=== PATIENT | male | born 1940 | race Caucasian/White ===

== ENCOUNTER 2017-08-08 08:54 | Day surgery (SDC) | payer OTHER ==
[2017-08-08] MEDS ORDERED: diphenhydrAMINE 25 MG CAP PO ONE (09:07)
[2017-08-08] MEDS ORDERED: FAMOTIDINE 20 MG TAB PO ONE (09:07)
[2017-08-08] MEDS ORDERED: DIAZEPAM 5 MG TAB PO ONE (09:07)
[2017-08-08] MEDS ORDERED: NS 1,000 ML IV ONE (09:07)
[2017-08-08] MEDS ORDERED: ASPIRIN EC 325 MG TAB PO ONE (09:07)
--- NOTE | 2017-08-08 09:28 | PDPROPOC ---
Sedation Plan of Care Sedation Plan of Care: mental status noted, patient educated of risks, benefits , alternatives, patient can tolerate sedation ASA Classification: ASA 2 Planned drugs: fentanyl, midazolam Mallampati Score: Class 2 Mallampati Reference Image: Patient passed 3-3-2 rule?: Yes
--- NOTE | 2017-08-08 09:29 | PDHPUP ---
History & Physical Update H&P update statement: This history and physical update is based on an assessment of the patient which was completed after admission or registration (within 24 hours), but prior to the surgery/procedure. H&P update: H&P reviewed & patient examined, no change in patient's condition since H&P completed
[2017-08-08] MEDS ORDERED: LIDOCAINE 1% 300 MG/30 ML SDV ONE (09:30)
[2017-08-08] MEDS ORDERED: MIDAZOLAM 2 MG/2 ML VIAL ONE (09:31)
[2017-08-08] MEDS ORDERED: IOPAMIDOL (ISOVUE-370) 150 ML BTL IV ONE (09:31)
[2017-08-08] MEDS ORDERED: fentaNYL 100 MCG/2 ML INJ ONE (09:31)
--- NOTE | 2017-08-08 09:37 | CPEKG ---
Heart Rate: 75 RR Interval: 800 P-R Interval: 143 QRSD Interval: 140 QT Interval: 424 QTC Interval: 474 P [place]: 0 QRS [place]: 41 T Wave [place]: -15 EKG Severity - ABNORMAL ECG - EKG Impression: ATRIAL FIBRILLATION, V-RATE 0-0 EKG Impression: VENTRICULAR PREMATURE COMPLEX EKG Impression: RIGHT BUNDLE BRANCH BLOCK Electronically Signed By: Nathanael Hoyt 08-Aug-2017 17:02:44
--- NOTE | 2017-08-08 09:54 | PDGENHP ---
History & Physical Chief Complaint: CP History of Present Illness: 77 yo male with CP. Very strong family hx of CAD. Could not afford stress test but CP is progressing. Pertinent Past, Social, Family History: Family hx of CAD. +smoking. Relevant Physical Exam: PERRLA. RRR s1 s2. CTA-b. soft, NT. no edema Cardiorespiratory Assessment: stable
[2017-08-08 10:04] LABS: INR 1.27 (0.83-1.16); PROTIME(PATIENT) 16.1 SEC (12.0-15.0)
[2017-08-08 10:11] LABS: PLATELET COUNT 162 10^3/uL (150-400)
[2017-08-08] MEDS ORDERED: OXYCODONE/APAP 5/325 TAB PO PRN (11:38)
[2017-08-08] MEDS ORDERED: NITROGLYCERIN 0.4 MG BTL SL PRN (11:38)
[2017-08-08] MEDS ORDERED: HYDROCODONE/APAP 5/325 TAB PO PRN (11:38)
[2017-08-08] MEDS ORDERED: ONDANSETRON 4 MG/2 ML VIAL IVP PRN (11:38)
[2017-08-08] MEDS ORDERED: ATROPINE SULFATE 1 MG/10 ML SYR IVP PRN (11:38)
--- NOTE | 2017-08-08 15:50 | CPIP ---
[f rep st] INVASIVE CARDIAC PROCEDURE DATE OF PROCEDURE: 08/08/2017 INDICATION FOR PROCEDURE: Positive chest pain. PROCEDURE: 1. Nonselective right groin sheathogram. 2. Bilateral selective coronary angiography. 3. Left heart catheterization. 4. Left ventriculogram. BRIEF HISTORY: This is a 77-year-old male with history of worsening anginal symptoms as an outpatien t. The patient could not afford a stress test but given his significant progression of chest pain as well as very significant family history of coronary artery disease, he decided to proceed with left heart catheterization. DESCRIPTION OF PROCEDURE: After informed consent was obtained, the patient was brought to [facility] where the right groin was prepped and draped in a sterile fashion. Using local lidocaine, a short 6-Jordanian sheath was introduced in the right common femoral artery, verified angiographically. Through this 6 -Jordanian sheath, a JL4 catheter was advanced to the left coronary artery. Images of the left coronary artery revealed normal left main. There was what appeared to be a codominant circumflex with ostial 80% to 90% disease. After the ostial disease, there was a takeoff of a small marginal-1 artery and then termination of the vessel into what appeared to be a large LPLS. There appeared to be collatera lization to what appeared most likely to be an occluded RCA. The LAD was a long vessel which wrapped around the apex. The LAD had what appeared to be diffuse 70% to 80% disease proximally, just at the takeoff of a medium-sized diagonal artery. The diagonal artery had proximal 40% disease, but otherw ise distally was healthy and free of disease. The LAD distally appeared to be healthy and free of di sease. After the images were obtained, the catheter was removed. A JR4 catheter was advanced to the right coronary artery. Images of the right coronary artery reveal ed normal ostial RCA. There was 90% proximal lesion in the RCA and what appeared to be distal occlus ion of the mid RCA, again, which reconstituted via collaterals from the left coronary artery. After images obtained, the JR4 catheter was removed. A pigtail catheter was then advanced into the left ve ntricle. LVEDP 15 mmHg, left ventriculogram was performed in the ERWIN position. EF of 65% with no wa ll motion abnormalities. No pullback between the LV and aorta. Pigtail catheter was removed over th e 0.035 wire. Right groin was closed with 6-Jordanian Angio-Seal. The patient tolerated the procedure well with no complications. IMPRESSION: 1. Triple-vessel coronary artery disease, namely in the form of ostial left circumflex disease, prox imal left anterior descending artery disease and 100% occluded mid right coronary artery disease. 2. Normal ejection fraction. PLAN: The patient will be referred for bypass surgery. I have contacted Dr. Levine, who agrees to se e the patient today. Scheduling of surgery will be up to the timing of Dr. Levine and the patient. /[id number]/MODL
--- NOTE | 2017-08-08 21:41 | GCON ---
[f rep st] CONSULTATION INITIAL CONSULTATION DATE OF CONSULTATION: 08/08/2017 REASON FOR CONSULTATION: Severe multivessel coronary artery disease. HISTORY OF PRESENT ILLNESS: The patient is a 77-year-old male with a medical history of hypertension , hyperlipidemia, chronic renal insufficiency, and chronic atrial fibrillation, who presented to the [facility] secondary to progressive shortness of breath over the last 1-2 months. He notes that mo st of this has been dyspnea on exertion and denies any symptoms at rest. He denies any chest pain. He also denies nausea, vomiting, fevers, chills, or other issues. MEDICAL HISTORY: Hypertension, hyperlipidemia, chronic atrial fibrillation, chronic renal insufficie ncy. SURGICAL HISTORY: Neck surgery many years ago for sprained or torn muscle. ALLERGIES: No known drug allergies. MEDICATIONS: Atorvastatin, lisinopril/hydrochlorothiazide, Coumadin, jane ashford. SOCIAL HISTORY: The patient is single and lives alone. He just recently retired. He was in the [employer] business. He denies any cigarette smoking history. He notes drinking alcohol of about 1- 2 drinks each evening which consists of wine. FAMILY HISTORY: Significant for coronary artery disease in his family including his brothers and sis ters all needing open heart surgery in their 60's. REVIEW OF SYSTEMS: A 12-point review of systems was negative other than noted in the HPI. PHYSICAL EXAMINATION: GENERAL: The patient is awake, alert, and oriented x3. He is in no acute dis tress. SHEENT: Normocephalic, atraumatic. No evidence of icterus. No JVD. No tracheal deviation. LUNGS: Clear to auscultation bilaterally. HEART: Irregularly-irregular with rate in the 70s. AB DOMEN: Soft, nontender, nondistended. EXTREMITIES: Warm and well perfused with mild pitting edema which is about 1+, extending to the knees bilaterally. DIAGNOSTIC STUDIES: Laboratory values: CBC: WBC 5.81, hemoglobin 16.0, hematocrit 45.6, platelet c ount 162. Chemistries: Sodium 147, potassium 4.5, chloride 113, carbon dioxide 21, BUN 27, creatini ne 1.4, glucose 106, calcium 9.7, magnesium 1.9. Coagulation Studies: PT 16.1, INR of 1.27. Cardiac catheterization performed earlier today which I have personally reviewed shows multivessel co ronary artery disease with approximately 70% proximal LAD lesion, as well as a high grade ostial left circumflex lesion, probably on the order of 90% or so. Also, the mid RCA has a significant lesion o f about 80% to 90%. However, this does not appear to be dominant. ASSESSMENT AND PLAN: The patient is a 77-year-old male with multivessel coronary artery disease, as well as chronic atrial fibrillation. Discussion was had with the patient in regard to his various tr eatment options including medical therapy, percutaneous coronary intervention, as well as surgical re vascularization. I do feel that the patient would benefit the most from surgical revascularization a nd he is willing to proceed as recommended. In addition, I would also perform left atrial appendage ligation and potentially a maze procedure, depending on how the patient is doing intraoperatively. T he patient understands and is willing to proceed, and will be scheduled within the coming week. /[id number]/MODL
== END 2017-08-08 16:35 | disposition home or self-care (01) ==
LOC: FCATH 08:54
PROVIDERS: ATTEND Internal Medicine Cardiovascular Disease
PROC: 4A023N7 Measurement of Cardiac Sampling and Pressure, Left Heart, Percutaneous Approach (ICD-10-PCS; principal; 2017-08-08)
PROC: B2151ZZ Fluoroscopy of Left Heart using Low Osmolar Contrast (ICD-10-PCS; principal; 2017-08-08)
PROC: B2111ZZ Fluoroscopy of Multiple Coronary Arteries using Low Osmolar Contrast (ICD-10-PCS; principal; 2017-08-08)
DX: I25.10 Atherosclerotic heart disease of native coronary artery without angina pectoris (principal); I25.82 Chronic total occlusion of coronary artery; R07.9 Chest pain, unspecified; R06.00 Dyspnea, unspecified; I48.2 Chronic atrial fibrillation; N28.9 Disorder of kidney and ureter, unspecified; I10 Essential (primary) hypertension; I45.10 Unspecified right bundle-branch block; E78.5 Hyperlipidemia, unspecified; Z79.01 Long term (current) use of anticoagulants; Z82.49 Family history of ischemic heart disease and other diseases of the circulatory system
CPT/HCPCS: C1760; J1644; J2250; J3010; Q9967

== ENCOUNTER 2017-08-11 05:56 | Inpatient (IN) | payer OTHER ==
[~2017-08-11 05:56] MED LIST: LIDOCAINE 1% 5 ML SDV ID PRN; MANNITOL 25% 12.5 GM/50 ML VIAL IVP ONE
[2017-08-11] MEDS ORDERED: CITRATE DEXTROSE SOLN 500 ML BAG MISC ONE (06:00)
[2017-08-11] MEDS ORDERED: PAPAVERINE HCL 60 MG in NS 100 ML IV ONE (06:00)
[2017-08-11] MEDS ORDERED: ceFAZolin 2 GM/SWFI 2 GM/20 ML SYR IVP ONE (06:00)
[2017-08-11] MEDS ORDERED: SODIUM BICARBONATE 20 MEQ, LIDOCAINE 1% 10 ML in NORMOSOL-R 1,000 ML MISC ONE (06:00)
[2017-08-11] MEDS ORDERED: PHENYLEPHRINE HCL 50 MG in NS 250 ML IV ONE (06:00)
[2017-08-11] MEDS ORDERED: VERAPAMIL 5 MG, NITROGLYCERIN 2.5 MG, HEPARIN 500 UNIT, SODIUM BICARBONATE 0.2 MEQ in L... MISC ONE (06:00)
[2017-08-11] MEDS ORDERED: TRANEXAMIC ACID 1,000 MG in NS (SYRINGE) 50 ML IV ONE (06:00)
[2017-08-11] MEDS ORDERED: INSULIN REGULAR HUMAN 100 UNIT in NS 100 ML IV ONE (06:00)
[2017-08-11] MEDS ORDERED: LIDOCAINE 1% 2 ML INJ ID PRN (06:11)
[2017-08-11] MEDS ORDERED: NS 500 ML IV ONE (06:11)
[2017-08-11] MEDS: MUPIROCIN 2% 22 GM OINT NS SCH ×3 (06:46→20:40)
[2017-08-11] MEDS ORDERED: PROTAMINE SULFATE 50 MG/5 ML VIAL IVP ONE (07:00)
[2017-08-11] MEDS ORDERED: NA BICARBONATE 50 MEQ/50 ML VIAL ONE (07:00)
[2017-08-11] MEDS ORDERED: CALCIUM CHLORIDE 1 GM/10 ML INJ ONE ×3 (07:00→07:02)
[2017-08-11] MEDS ORDERED: MILRINONE/DEXTROSE/100 ML BAG IV ONE (07:00)
[2017-08-11] MEDS ORDERED: AMIODARONE HCL 150 MG/3 ML VIAL ONE ×2 (07:01→07:03)
[2017-08-11] MEDS ORDERED: ceFAZolin 1 GM VIAL ONE ×2 (07:01→15:09)
[2017-08-11] MEDS ORDERED: niCARdipine/NACL/200 ML BAG IV ONE (07:01)
[2017-08-11] MEDS ORDERED: DOPamine/DEXTROSE/250 ML BAG IV ONE (07:01)
[2017-08-11] MEDS ORDERED: HEPARIN 10,000 UNIT/10 ML MDV (1,000 UNIT/ML) ONE ×2 (07:01→07:03)
[2017-08-11] MEDS ORDERED: ADENOSINE 6 MG/2 ML VIAL ONE (07:01)
[2017-08-11] MEDS ORDERED: ALBUMIN 5% 250 ML BOTTLE IV ONE ×2 (07:02→15:28)
[2017-08-11] MEDS ORDERED: methylPREDNISolone SOD SUCC 1 GM/8 ML VIAL ONE (07:03)
[2017-08-11] MEDS ORDERED: CITRATE DEXTROSE SOLN 500 ML BAG ONE (07:03)
[2017-08-11] MEDS ORDERED: MAGNESIUM SULFATE 1 GM/2 ML VIAL ONE (07:03)
[2017-08-11] MEDS ORDERED: LIDOCAINE 2% 100 MG/5 ML SYR ONE (07:03)
[2017-08-11] MEDS ORDERED: VANCOMYCIN 1 GM VIAL ONE ×2 (07:12→09:40)
[2017-08-11] MEDS ORDERED: LABETALOL HCL 5 MG/ML 20 ML MDV ONE (07:17)
[2017-08-11] MEDS ORDERED: ROCURONIUM 100 MG/10 ML VIAL ONE (07:17)
[2017-08-11] MEDS ORDERED: PHENYLEPHRINE 10 MG/ML SDV ONE (07:17)
[2017-08-11] MEDS ORDERED: LIDOCAINE 2% 5 ML SDV ONE (07:28)
[2017-08-11] MEDS ORDERED: SUCCINYLCHOLINE CHLORIDE 200 MG/10 ML SYR IVP ONE (07:28)
[2017-08-11] MEDS ORDERED: PROPOFOL 200 MG/20 ML VIAL ONE (07:29)
[2017-08-11] MEDS ORDERED: fentaNYL 250 MCG/5 ML INJ ONE ×2 (07:29)
[2017-08-11] MEDS ORDERED: NOREPINEPHRINE BITARTRATE 16 MG in NS 250 ML IV ONE (07:30)
--- NOTE | 2017-08-11 07:38 | PDHPUP ---
History & Physical Update H&P update statement: This history and physical update is based on an assessment of the patient which was completed after admission or registration (within 24 hours), but prior to the surgery/procedure. H&P changes: Completing risk stratification. CXR NAF. Cr stable. Carotid US and HgbA1c pending. Verified coumadin has been held last 5 days.
[2017-08-11] MEDS ORDERED: MIDAZOLAM 2 MG/2 ML VIAL IVP ONE (07:40)
--- NOTE | 2017-08-11 07:43 | PDANEPAE ---
ANE History of Present Illness cab ANE Past Medical History - Cardiovascular History Hx Hypertension: Yes Hx Arrhythmias: Yes Hx Chest Pain: No Hx Coronary Artery / Peripheral Vascular Disease: Yes Hx CHF / Valvular Disease: No Hx Palpitations: No - Pulmonary History Hx COPD: No Hx Asthma/Reactive Airway Disease: No Hx Recent Upper Respiratory Infection: No Hx Oxygen in Use at Home: No Hx Sleep Apnea: No Sleep Apnea Screening Result - Last Documented: Positive - Neurologic History Hx Cerebrovascular Accident: No Hx Seizures: No Hx Dementia: No - Endocrine History Hx Diabetes: No Hypothyroid: No Hyperthyroid: No - Renal History Hx Renal Disorders: Yes - Liver History Hx Hepatic Disorders: No - Neurological & Psychiatric Hx Hx Neurological and Psychiatric Disorders: No - Cancer History Hx Cancer: No - Chronic Pain History Chronic Pain: No ANE Review of Systems Review of Systems: - Exercise capacity METS (RN): 3 METS ANE Patient History - Allergies Allergies/Adverse Reactions: No Known Allergies Allergy (Unverified 11/17/10 10:24) - Home Medications Home Medications: Atorvastatin Calcium [Lipitor 40 mg (*)] 40 mg PO DAILY 08/01/17 [Last Taken ] Herbals/Supplements -Info Only 1 ea PO DAILY 08/01/17 [Last Taken 08/08/17 09:57 ] Lisinopril/Hctz 20/12.5MG [Zestoretic/Prinzide 20/12.5MG (*)] 2 ea PO DAILY [Last Taken 08/09/17] Warfarin Sodium [Coumadin 5MG (*)] 5 mg PO DAILY 08/01/17 [Last Taken 08/06/17] - NPO status NPO Status: no food or drink >8 hours NPO Since - Liquids (Date): 08/10/17 NPO Since - Liquids (Time): 19:00 NPO Since - Solids (Date): 08/10/17 NPO Since - Solids (Time): 19:00 - Smoking Hx Smoking Status: Never smoked ANE Labs/Vital Signs - Labs Result Diagrams: 08/11/17 06:33 08/11/17 06:33 - Vital Signs Blood Pressure: 118/77 Heart Rate: 58 Respiratory Rate: 18 O2 Sat (%): 95 Height: 182.88 cm Weight: 92.533 kg ANE Physical Exam - Airway Mallampati Score: Class 2 Mouth exam: normal dental/mouth exam - Pulmonary Pulmonary: no respiratory distress - Cardiovascular Cardiovascular: regular rate and rhythym - ASA Status ASA Status: III ANE Anesthesia Plan Anesthesia Plan: general endotracheal anesthesia Lines/Monitors: arterial line, central line, ALBERT
[2017-08-11] MEDS ORDERED: MIDAZOLAM 2 MG/2 ML VIAL ONE ×2 (08:32→10:49)
[2017-08-11] MEDS ORDERED: MAGNESIUM SULF 2 GM/WATER 50 ML BAG IV ONE (11:15)
[2017-08-11] MEDS ORDERED: ISOFLURANE 100 ML BOTTLE IH ONE (11:42)
[2017-08-11] MEDS ORDERED: ROCURONIUM 50 MG/5 ML VIAL ONE ×2 (13:17→15:14)
[2017-08-11] MEDS ORDERED: SUGAMMADEX SODIUM 200 MG/2 ML VIAL IVP ONE (14:57)
[2017-08-11] MEDS ORDERED: PROPOFOL/EMULSION 500 MG/50 ML BOTTLE IV ONE (15:24)
[2017-08-11] MEDS ORDERED: ALBUMIN 5% 500 ML BOTTLE IV ONE (15:27)
--- NOTE | 2017-08-11 15:30 | POSTOPPROG ---
Post Op Note Date of Operation: 08/11/17 Surgeon: Liliana España [employer] Assistant: Marilia Cotter PA-C Anesthesia: GET(General Endotracheal) Pre-op Diagnosis: 1) Severe Coronary artery disease; 2) Long-standing persistent a-fib Post-op Diagnosis: Same Procedure: CABG x 4 (CHAPIN-LAD, SVG-D1, SVG-PDA, SVG-OM1); TAMIR ligation; Cardoza- Maze IV Findings: CHAPIN adequate in size and flow. LAD 1.75mm, PDA 1mm, OM1 1.25mm, D1 1.5mm Inf/Abcess present in the surg proc area at time of surgery?: No EBL: 100-500 Complications: None Drains: Other (Chest tube x 2 (mediastinal and left pleural)) Specimen(s): None
[2017-08-11] MEDS ORDERED: POTASSIUM Cl (KCl) 50 ML IV PRN (16:01)
[2017-08-11] MEDS ORDERED: AMIODARONE HCL 200 ML IV ONE (16:01)
[2017-08-11] MEDS ORDERED: LACTULOSE 20 GM/30 ML UDCUP PO PRN (16:01)
[2017-08-11] MEDS ORDERED: ACETAMINOPHEN 325 MG TAB PO PRN (16:01)
[2017-08-11] MEDS ORDERED: MEPERIDINE 25 MG/ML SYR IVP PRN (16:01)
[2017-08-11] MEDS ORDERED: SODIUM CL NASAL 45 ML BTL EACHNARE PRN (16:01)
[2017-08-11] MEDS ORDERED: BISACODYL 10 MG SUPP PR PRN (16:01)
[2017-08-11] MEDS ORDERED: ACETAMINOPHEN 650 MG SUPP PR PRN (16:01)
[2017-08-11] MEDS ORDERED: MAGNESIUM SULF 2 GM/WATER 50 ML IV ONE (16:01)
[2017-08-11] MEDS ORDERED: ONDANSETRON DISINTEGRATING 4 MG TAB PO PRN (16:01)
[2017-08-11] MEDS ORDERED: METOCLOPRAMIDE 10 MG/2 ML VIAL IVP PRN (16:01)
[2017-08-11] MEDS ORDERED: D50W 25 GM/50 ML SYR IVP PRN (16:01)
[2017-08-11] MEDS ORDERED: PANTOPRAZOLE SODIUM 40 MG VIAL IVP ONE ×2 (16:01→20:45)
[2017-08-11] MEDS ORDERED: ALBUMIN 5% 250 ML IV PRN (16:01)
[2017-08-11] MEDS ORDERED: CEPACOL LOZENGE PO PRN (16:01)
[2017-08-11] MEDS ORDERED: MAGNESIUM HYDROXIDE 30 ML UDCUP PO PRN (16:01)
[2017-08-11] MEDS ORDERED: NS 1,000 ML IV SCH (16:15)
[2017-08-11 16:19] LABS: PLATELET COUNT 106 10^3/uL (150-400)
--- NOTE | 2017-08-11 16:19 | POSTANESTH ---
Post Anesthetic Evaluation Cardiovascular Status: Normal, Stable Respiratory Status: Other, See Comment (stable on vent) Level of Consciousness/Mental Status: Other, See Comment (sedated on propofol) Pain Control: Adequate, Prn Tx Ordered Nausea/Vomiting Control: Adequate, Prn Tx Ordered Complications Possibly Related to Anesthesia: None Noted
[2017-08-11] MEDS ORDERED: NALOXONE HCL 0.4 MG/ML INJ IVP PRN (16:20)
[2017-08-11] MEDS ORDERED: niCARdipine/NACL 200 ML IV PRN (16:23)
[2017-08-11] MEDS ORDERED: INSULIN REGULAR HUMAN 100 UNIT in NS 100 ML IV SCH (16:30)
[2017-08-11 16:33] LABS: INR 1.56 (0.83-1.16); PROTIME(PATIENT) 18.8 SEC (12.0-15.0)
[2017-08-11] MEDS: fentaNYL 100 MCG/2 ML INJ IVP PRN ×2 (19:00→22:26)
[2017-08-11] MEDS ORDERED: SODIUM BICARBONATE 50 MEQ/50 ML SYR ONE (20:14)
[2017-08-11] MEDS: ONDANSETRON 4 MG/2 ML VIAL IVP PRN (20:44)
[2017-08-11] MEDS ORDERED: CHLORHEXIDINE GLUCONATE 15 ML UDL PO SCH (21:00)
[2017-08-11] MEDS ORDERED: FAMOTIDINE 20 MG/NACL 50 ML IV SCH (21:00)
[2017-08-11] MEDS ORDERED: ceFAZolin 2 GM/DEXTROSE 100 ML IV SCH (21:00)
[2017-08-11] MEDS: ceFAZolin 2 GM/SWFI 2 GM/20 ML SYR IVP SCH (21:15)
[2017-08-11] MEDS: AMIODARONE HCL 200 ML IV SCH (22:20)
--- NOTE | 2017-08-12 00:11 | GOP ---
[f rep st] OPERATIVE REPORT DATE OF OPERATION: 08/11/2017 SURGEON: Liliana España MD [place] TYPIST: Marilia Cotter PA-C ANESTHESIA: General. PREOPERATIVE DIAGNOSIS: 1. Severe multivessel coronary artery disease. 2. Persistent longstanding atrial fibrillation. POSTOPERATIVE DIAGNOSIS: 1. Severe multivessel coronary artery disease. 2. Persistent longstanding atrial fibrillation. PROCEDURE PERFORMED: 1. Median sternotomy. 2. Endoscopic saphenous vein harvesting from the left lower extremity. 3. Epiaortic ultrasound. 4. Total cardiopulmonary bypass. 5. Cardoza-Maze IV procedure utilizing cryoablation. 6. Left atrial appendage ligation utilizing 40 mm AtriClip device. 7. Coronary artery bypass grafting x4 (CHAPIN to LAD, saphenous vein graft to OM1, saphenous vein valentino t to diagonal 1, saphenous vein graft to PDA). 8. Placement of 2 temporary right atrial and right ventricular epicardial pacing wires. FINDINGS: The CHAPIN was noted to be adequate in size, with good flow. The LAD target was 1.75 mm, PD A 1 mm, OM1 1.25 mm, diagonal-1 1.5 mm. SPECIMENS: None. ESTIMATED BLOOD LOSS: 500 mL. INDICATIONS: The patient is a 77-year-old male who has been noticing increasing shortness of breath for the past few months. Based on his symptoms, he underwent cardiac catheterization last week for p ossible coronary artery disease, and he was found to have severe multivessel coronary artery disease, and therefore referred for surgical revascularization. The patient was seen preoperatively, where t he risks, benefits, and alternatives were fully detailed to him and he provided an informed consent. The patient was then brought to the operating room. DESCRIPTION OF PROCEDURE: The patient was brought to the operating room and placed on the operating room table in the supine position. General anesthesia was induced, and standard monitoring lines as well as a Parker catheter were placed. The patient's chest, abdomen, and bilateral lower extremities were then prepped and draped in the standard surgical fashion. A surgical time-out was performed, an d administration of preoperative antibiotic prophylaxis given prior to initiating the procedure. A standard median sternotomy incision was made, and the sternum was divided using a pneumatic saw. T he left pleural space was entered, and the left internal mammary artery was harvested from its origin to its bifurcation using electrocautery and a no-touch technique. Concurrently, the left greater sa phenous vein was harvested using an endoscopic harvesting technique. The vein was prepared with gent le distention and ligation of side branches. The leg incisions were closed in 2 layers with absorbab le suture. The pericardium was opened and the patient was systemically heparinized. The internal mammary artery was then divided distally, and the remnant was ligated using hemoclips. There was brisk flow throug h the mammary vessel, and the pedicle was controlled with a bulldog clamp. The left side of the iwona cardium was then opened to accommodate the mammary pedicle. After assuring a plaque-free cannulation and crossclamp zone utilizing the epiaortic ultrasound, the ascending aorta was cannulated through 2 concentric pursestring sutures which were secured using a Ru ponce tourniquet. A dual-stage venous cannula was then inserted into the right atrial appendage throug h a pursestring suture and also secured using a Rumel tourniquet. Cardiopulmonary bypass was then in itiated, and the patient was passively cooled. A retrograde coronary sinus catheter was placed throu gh a separate right atrial pursestring, as well as an antegrade cardioplegia needle in the ascending aorta. The aorta was then crossclamped. Antegrade and retrograde cold blood cardioplegia were then administered and continued intermittently throughout the procedure. Diastolic arrest was achieved, a nd the aortic needle was converted to a vent. The heart was also topically cooled with cold normal s jonel. Waterston's groove along the right-sided pulmonary veins was developed. A left atriotomy was then cr eated. Utilizing cryoablation, the left-sided Cardoza-Maze IV lesions were performed. Once the lesion s et was performed utilizing the cryoablation, the left atrium was closed utilizing 3-0 Prolene suture in running fashion. However, just prior to tying this down, some airing was accomplished by gently i nflating the lungs. Next, the left atrial appendage was identified and sized. Left atrial appendage ligation was then pe rformed utilizing a 40 mm AtriClip device. The PDA target was then identified. An arteriotomy was made on the vessel, and an end-to-side anasto mosis was fashioned with a reverse saphenous vein graft using 7-0 Prolene suture in running fashion. Next, the OM1 target was identified. I was not able to find the distal left circumflex target. An arteriotomy was made on the OM1 vessel, and an end-to-side anastomosis fashioned with a reverse saphe nous vein graft using 7-0 Prolene suture in running fashion. The diagonal-1 target was then identifi ed and exposed. An arteriotomy was made on the coronary artery, and an end-to-side anastomosis fashi oned with a reverse saphenous vein graft using 7-0 Prolene suture in running fashion. Finally, the L AD target was identified and exposed. An arteriotomy was made on the coronary artery, and an end-to- side anastomosis fashioned with the free end of the internal mammary artery using 8-0 Prolene suture in running fashion. Upon releasing the bulldog clamp, I did notice some bleeding from the anastomosi s. During performance of the anastomosis, I did also note some thickened plaque at the distal aspect of the anastomosis, and significant bleeding was noted coming from this area. Therefore, I elected to re-clamp and re-do the anastomosis utilizing 8-0 Prolene suture, and with this maneuver adequate h emostasis at the anastomosis was achieved. The bulldog clamp was released once again, and so re-esta blished the LAD. The patient was then re-warmed and the aortic crossclamp was removed. The retrograde catheter was re moved, and utilizing this site I was able to perform the right-sided lesions for the Cardoza-Maze IV util izing cryoablation. In addition, epicardial lesions were created between the SVC and the IVC, as wel l as the coronary sinus lesion on the epicardium. Once these lesions were created, the pursestring s uture was tied down. A partial occluding clamp was then placed on the ascending aorta. Three aortot omies were made using a knife and punch to perform the proximal anastomoses. Each proximal anastomos is was created in a side-to-end configuration using 5-0 Prolene suture in running fashion to secure e ach vein graft to the aorta. The crossclamp was then removed, bypass grafts de-aired, and flow estab lished to the bypass coronary arteries. Two temporary right ventricular as well as right atrial paci ng wires were placed and brought to the skin surface at the left and right subcostal margins respecti vely. In order to come off cardiopulmonary bypass, the patient did require pacing since his intrinsic rate was quite slow and appeared to be junctional. With pacing, the patient was able to be weaned from ca rdiopulmonary bypass. Systemic heparinization was then reversed with protamine sulfate. The venous cannula was removed, and its pursestring suture was tied. The aortic cannula was also removed and it s pursestring sutures were both tied. All suture lines and surgical sites were made to be hemostatic . A 36-Setswana mediastinal and left pleural chest tube were placed. The sternum was then closed usin g stainless steel wires in a simple and adkref-dv-tqdlw fashion. The fascia at the linea was then cl osed using [id number] #1 Vicryl sutures. The presternal fascia, subcutaneous tissues, and subcu ticular tissues were all closed in multiple layers with absorbable suture. Sterile dressings were ap plied, and the chest tubes were connected to suction drainage. At the end of the operation, all sponge, instrument, and needle counts were noted to be correct. The patient remained intubated and was transferred to the ICU in stable condition. DRAINS: 36-Setswana chest tube x2 (mediastinal and left pleural). COMPLICATIONS: None. /[id number]/MODL
[2017-08-12 05:27] LABS: PLATELET COUNT 104 10^3/uL (150-400)
[2017-08-12 05:35] LABS: INR 1.44 (0.83-1.16); PROTIME(PATIENT) 17.7 SEC (12.0-15.0)
--- NOTE | 2017-08-12 07:26 | SOAPPROG ---
SOAP Progress Note Assessment/Plan: Assessment: POD#1 CABG x 4 (CHAPIN-LAD, SV-D1, SV-OM1, SV-PDA), EVH LLE, CoxMaze 4 with cryothermy and AtriClip ligation TAMIR Sx severe CAD w preserved LV systolic fx - s/p CABG. Small caliber targets. Off CPB with low dose pressor support. Kept intubated overnight. Successfully extubated early this am and weaned off levo. Secondary prevention with baby ASA , BB and statin when appropriate. Longstanding persistent AF/chronic anticoagulation w Coumadin - Early post Maze rhythm predominantly JR/slow AF and Vpaced for optimized hemodynamics. AF prophylaxis with amiodarone. Antithrombotic prophylaxis with Coumadin to resume once coagulopathy resolved. CKD3 - Baseline Cr 1.4. Stable. Target MAP > 70. Acute expected blood loss anemia with mild coagulopathy - Stable. No blood/ blood products transfusions required. Plan: Routine POD#1 orders re lines, orals, mobility. Keep CTs to suction. Keep VVI pacer at 62 so long as MAP > 70. Colloid for CVP < 10. Lasix for CVP > 18. Transition amio to orals tonight. Restart coumadin tomorrow. 08/12/17 07:24 Subjective: Doing ok. A little anxious about doing anything without coaching. Hungry and thirsty. Satisfactory analgesia. No nausea or dizziness. Objective: Vital Signs Temp Pulse Resp BP Pulse Ox 37.6 C 70 14 122/67 H 99 08/12/17 06:00 08/12/17 06:00 08/12/17 06:00 08/12/17 06:00 08/12/17 06:13 Laboratory Results 08/12/17 05:05 08/12/17 05:05 08/11/17 08/12/17 08/13/17 05:59 05:59 05:59 Intake Total 1882.9 Output Total 1095 Balance 787.9 PT 17.7 SEC (12.0-15.0) H 08/12/17 05:05 INR 1.44 (0.83-1.16) H 08/12/17 05:05 Levo at 1-2 mcg yest and overnoc for MAP > 65. Weaned off completely this am. Vpaced for JR/slow AF 50s. Adequate MAPs maintained with Vpace rate 62. CXR -> No overt PTX, min vasc congestion, bibasilar atelectasis L>R. Adequate fluid balance. No significant CTOP. Labs as expected. Physical Exam - Physical Exam General Appearance: alert, no apparent distress Respiratory: crackles (bilat), other (CTs x 2 y-d to pleurovac, serosang drainage, small air leak with deep tidal and cough) Cardiac/Chest: regular rate, rhythm (paced), other (Sternotomy and LLE dressings CDI. A&V wires intact.) Abdomen: normal bowel sounds, non-tender, soft Skin: warm/dry Extremities: swelling (1+ gen) ICD10 Worksheet Patient Problems: Problems Problem Status Onset Acute blood loss anemia Acute CAD, multiple vessel Acute CKD (chronic kidney disease), stage III Acute Chronic anticoagulation Acute Chronic atrial fibrillation Acute S/P CABG x 4 Acute ~08/11/17 S/P ablation of atrial fibrillation Acute ~08/11/17
[2017-08-12] MEDS ORDERED: SODIUM BICARBONATE 50 MEQ/50 ML SYR IVP PRN (07:45)
[2017-08-12] MEDS ORDERED: traMADol 50 MG TAB PO PRN (08:03)
[2017-08-12] MEDS ORDERED: SODIUM BICARBONATE 50 MEQ/50 ML SYR IVP ONE (08:30)
[2017-08-12] MEDS ORDERED: ASPIRIN 81 MG CHEWABLE TAB TUBE PRN (09:00)
--- NOTE | 2017-08-12 09:33 | ASMTCMCOM ---
CM Note CM Note Notes: 77 yr old male admitted for CAD, Afib-chronic anticoagulation, HTN. Had a CABG x 4, bld loss-anemia. Therapies to eval for possible discharge needs. CM to follow. Date Signed: 08/12/2017 09:32 AM Electronically Signed By:Kari Welch LCSW
[2017-08-12] MEDS ORDERED: ALBUMIN 5% 500 ML BOTTLE IV ONE (10:10)
[2017-08-12] MEDS: ceFAZolin 2 GM/SWFI 2 GM/20 ML SYR IVP SCH ×2 (10:14→21:13)
[2017-08-12] MEDS: ASPIRIN 81 MG CHEWABLE TAB PO SCH (10:14)
[2017-08-12] MEDS: PANTOPRAZOLE SODIUM 40 MG TAB PO SCH (10:14)
[2017-08-12] MEDS: MUPIROCIN 2% 22 GM OINT NS SCH ×2 (10:15→21:14)
[2017-08-12] MEDS ORDERED: ALBUMIN 5% 500 ML IV ONE (10:15)
[2017-08-12] MEDS: AMIODARONE HCL 200 ML IV SCH (10:48)
[2017-08-12] MEDS: HYDROCODONE/APAP 5/325 TAB PO PRN ×3 (12:50→20:16)
[2017-08-12] MEDS: ONDANSETRON 4 MG/2 ML VIAL IVP PRN (12:51)
[2017-08-12] MEDS ORDERED: WHITE WINE 120 ML BOTTLE PO PRN (14:11)
[2017-08-12] MEDS ORDERED: NOREPINEPHRINE BITARTRATE 4 MG in NS 500 ML IV SCH (14:30)
[2017-08-12] MEDS ORDERED: MIDAZOLAM 2 MG/2 ML VIAL ONE (16:24)
[2017-08-12] MEDS ORDERED: fentaNYL 100 MCG/2 ML INJ ONE (16:25)
--- NOTE | 2017-08-12 16:50 | GCON ---
[f rep st] CONSULTATION PULMONARY/CRITICAL CARE CONSULTATION. DATE OF CONSULTATION: 08/11/2017 REFERRING PHYSICIAN: Liliana España MD REASON FOR CONSULTATION: Evaluation and management of anemia and postop respiratory failure. HISTORY: The patient is a 77-year-old male with a history of hypertension, hyperlipidemia, chronic r enal insufficiency, as well as chronic atrial fibrillation, who presented with progressive shortness of breath over a month or 2. He denied chest pain. He underwent heart catheterization which showed severe multivessel coronary artery disease. He underwent a 4-vessel CABG this afternoon as well as a maze procedure and atrial appendage ligation. He returned to the intensive care unit intubated, and is starting to wake up. PAST MEDICAL HISTORY: 1. Hypertension. 2. Hyperlipidemia. 3. Chronic atrial fibrillation. 4. Chronic renal insufficiency with a baseline creatinine of about 1.5. MEDICATIONS: At the time of admission include atorvastatin, lisinopril/hydrochlorothiazide, Coumadin . ALLERGIES: None. SOCIAL HISTORY: The patient is recently retired. He does not smoke. He has 1 or 2 glasses of wine each evening. FAMILY HISTORY: Positive for coronary artery disease. REVIEW OF SYSTEMS: Unobtainable. PHYSICAL EXAMINATION: VITAL SIGNS: Blood pressure is 110/69 with a heart rate of 60. He is afebril e. Oxygen saturations are 100% on 60% oxygen on the ventilator. HEENT: Normocephalic and atraumati c. No icterus. NECK: No JVD. Trachea is midline. CHEST: Clear to auscultation. CARDIAC: Regul ar rate and rhythm without murmur. ABDOMEN: Soft, nontender. Bowel sounds are present. EXTREMITIE S: No clubbing, cyanosis, or edema. NEURO: The patient is somnolent, but awakens to voice. He fol lows some simple commands. He is moving all 4 extremities without gross motor deficits. LABORATORY: White blood count is 16.0. Hemoglobin is 12.7, down from 14.8 at admission. A platelet count is 106. A chemistry group shows a creatinine of 1.0, a potassium is 4.4, glucose is 131. An INR is 1.6. Blood gas shows a pH of 7.40 with a pO2 of 140, a CO2 of 35, and a bicarbonate of 22 on 60% oxygen. A chest x-ray is unremarkable. Images reviewed by me. An echocardiogram from 06/26/2017 shows an ejection fraction of 60% and normal diastolic function. T he right ventricular systolic pressure is estimated at 47 mmHg. ASSESSMENT: 1. Status post coronary artery bypass graft x4. The intraoperative course was unremarkable. 2. Chronic atrial fibrillation. The patient is currently on a pacemaker with junctional and ventric ular escape rhythms. 3. Anemia. The patient has mild anemia postoperatively. This is likely due to expected blood-loss anemia. 4. Hyperglycemia. The patient has mild hyperglycemia immediately postoperatively. 5. Pulmonary hypertension. This was seen on the echocardiogram. He has no known prior history of p ulmonary hypertension and no underlying known risk factors. RECOMMENDATIONS: 1. Wean and extubate as tolerated per open heart protocol. 2. Follow hemoglobin. The patient does not have signs of excessive blood loss. 3. Follow blood sugars and treat with insulin to maintain blood sugars in the low 100s. 4. The patient may benefit from overnight oximetry and further evaluation as an outpatient once he h as recovered from surgery in order to try to identify a cause for his pulmonary hypertension. /[id number]/MODL
--- NOTE | 2017-08-12 17:43 | PDINTPN ---
Skein Inspector Progress Note Assessment/Plan: Assessment: S/P CABG, MAZE: Continues to have HCB with slow junctional escape. Now changed to dual chamber pacing. Hyperglycemia: Mild. Controlled with insulin Anemia: Down a bit. No significant active bleeding. Plan: Continue SSI. Follow H/H. Keep in ICU as long as he's needing pacer. 08/12/17 17:45 Subjective: C/O some anterior CP at surgical site, increases with deep inspiration. Strength and appetite improved. Objective: Vital Signs Temp Pulse Resp BP Pulse Ox 37.4 C 80 14 112/77 99 08/12/17 11:00 08/12/17 15:00 08/12/17 15:00 08/12/17 15:00 08/12/17 15:00 Laboratory Results 08/12/17 05:05 08/12/17 05:05 08/11/17 08/12/17 08/13/17 05:59 05:59 05:59 Intake Total 1882.9 1500 Output Total 1095 480 Balance 787.9 1020 PT 17.7 SEC (12.0-15.0) H 08/12/17 05:05 INR 1.44 (0.83-1.16) H 08/12/17 05:05 Physical Exam - Physical Exam General Appearance: alert, no apparent distress EENT: normal ENT inspection Neck: normal inspection Respiratory: lungs clear, normal breath sounds, other (air leak) Cardiac/Chest: regular rate, rhythm, friction rub Abdomen: non-tender, No soft Skin: normal color, warm/dry Extremities: normal inspection Neuro/Psych: alert, normal mood/affect, oriented x 3 ICD10 Worksheet Patient Problems: Problems Problem Status Onset Acute blood loss anemia Acute CAD, multiple vessel Acute CKD (chronic kidney disease), stage III Acute Chronic anticoagulation Acute Chronic atrial fibrillation Acute S/P CABG x 4 Acute ~08/11/17 S/P ablation of atrial fibrillation Acute ~08/11/17
[2017-08-12] MEDS ORDERED: AMIODARONE HCL 200 MG TAB PO SCH (21:00)
[2017-08-13] MEDS: HYDROCODONE/APAP 5/325 TAB PO PRN ×2 (01:23→16:23)
[2017-08-13 04:52] LABS: INR 1.37 (0.83-1.16)
--- NOTE | 2017-08-13 07:37 | SOAPPROG ---
SOAP Progress Note Assessment/Plan: Assessment: POD#2 CABG x 4 (CHAPIN-LAD, SV-D1, SV-OM1, SV-PDA), EVH LLE, CoxMaze 4 with cryothermy and AtriClip ligation TAMIR Sx severe CAD w preserved LV systolic fx - s/p CABG. Small caliber targets. Off CPB with low dose pressor support. Kept intubated overnight. Successfully extubated POD#1. Switched to dopa and DDD pacing for optimized hemodynamics. Secondary prevention with baby ASA, BB and statin when appropriate. Longstanding persistent AF/chronic anticoagulation w Coumadin - Early post Maze rhythm predominantly JR/slow AF and paced for hemodynamic support. AF prophylaxis with amiodarone discontinued. Antithrombotic prophylaxis with Coumadin once potential perm pacing needs clearer. Prior INR parameters of 2-3 sufficient. Acute on CKD3 - Baseline Cr 1.4; bump to peak of 1.9 yest. Assoc with oliguria and relative hypotension. Restarted on low dose pressor support for augmented renal perfusion. No further decline in renal fx. Acute expected blood loss anemia with mild coagulopathy - Stable. No blood/ blood products transfusions required. Plan: Keep CTs to pleurovac, suction at rest, WS with ambulation. Cont DDD pacer at 80. Cont dopa @ 3mcg/kg/min. Lasix 80 mg IV x 1. Start VTE prophylaxis with SQ hep. Keep in ICU. 08/13/17 07:33 Subjective: Better than yest in terms of strength and pain control. Still getting a bit dizzy with positional changes. Thirsty. Objective: Vital Signs Temp Pulse Resp BP Pulse Ox 37.2 C 80 17 127/64 H 97 08/13/17 04:00 08/13/17 06:00 08/13/17 06:00 08/13/17 06:00 08/13/17 06:00 Laboratory Results 08/12/17 05:05 08/13/17 04:35 08/12/17 08/13/17 08/14/17 05:59 05:59 05:59 Intake Total 1882.9 2709 Output Total 1095 1280 Balance 787.9 1429 PT 17.0 SEC (12.0-15.0) H 08/13/17 04:35 INR 1.37 (0.83-1.16) H 08/13/17 04:35 DDD paced at 80. Underlying rhythm appears junctional 50s. Dopa at 3 mcg for MAPs > 70. UOP 330-350/12hr. Cr stable at 1.8 Positive fluid balance. +9 kg overall. CVP this am 19-22. CTOP steadily dissipating. Air leak appears to have resolved. CXR -> No PTX, mild pulm vasc congestion, small bilat pl eff w compressive atelectasis. Physical Exam - Physical Exam General Appearance: alert, no apparent distress (at rest), anxiety (about doing anything without reassurance/coaching) Respiratory: decreased breath sounds (rt base), other (CTs y-d to pleurovac, serosang drainage, +tidal, no air leak) Cardiac/Chest: regular rate, rhythm (paced), other (Sternal and LLE dressing CDI. A&V wires intact.) Abdomen: normal bowel sounds, non-tender, soft Skin: warm/dry Extremities: swelling (1+ gen) ICD10 Worksheet Patient Problems: Problems Problem Status Onset Acute blood loss anemia Acute CAD, multiple vessel Acute CKD (chronic kidney disease), stage III Acute Chronic anticoagulation Acute Chronic atrial fibrillation Acute S/P CABG x 4 Acute ~08/11/17 S/P ablation of atrial fibrillation Acute ~08/11/17
[2017-08-13] MEDS ORDERED: FUROSEMIDE 100 MG/10 ML VIAL IVP ONE (07:58)
[2017-08-13] MEDS: PANTOPRAZOLE SODIUM 40 MG TAB PO SCH (09:35)
[2017-08-13] MEDS: ASPIRIN 81 MG CHEWABLE TAB PO SCH (09:35)
[2017-08-13] MEDS: SENNOSIDES/DOCUSATE SODIUM TAB PO SCH ×2 (09:35→22:38)
[2017-08-13] MEDS: MUPIROCIN 2% 22 GM OINT NS SCH (09:36)
[2017-08-13] MEDS ORDERED: FUROSEMIDE 40 MG/4 ML VIAL IVP ONE (09:45)
--- NOTE | 2017-08-13 15:47 | ASMTCMCOM ---
CM Note CM Note Notes: Patient is POD #2 CABG x4. He is fairly deconditioned after his surgery and quite concerned that he is not feeling well. He is amenable to the idea of SNF rehab. I spoke with Marilia, cardiology PA, and she agrees that this might be helpful. Patient was interested in [facility], so I sent a referral. Hopefully, they will be able to come see him in the hospital and explain their services. Case Managment will follow. Date Signed: 08/13/2017 03:47 PM Electronically Signed By:Caren Mendoza RN
[2017-08-13] MEDS: HEPARIN 5,000 UNIT/0.5 ML SYR SC SCH ×2 (16:23→22:38)
[2017-08-13] MEDS ORDERED: TAMSULOSIN HCL 0.4 MG CAP PO SCH (16:30)
[2017-08-14 04:35] LABS: INR 1.16 (0.83-1.16)
[2017-08-14] MEDS: HEPARIN 5,000 UNIT/0.5 ML SYR SC SCH (06:14)
--- NOTE | 2017-08-14 07:23 | SOAPPROG ---
SOAP Progress Note Assessment/Plan: Assessment: POD#3 CABG x 4 (CHAPIN-LAD, SV-D1, SV-OM1, SV-PDA), EVH LLE, CoxMaze 4 with cryothermy and AtriClip ligation TAMIR Sx severe CAD w preserved LV systolic fx - s/p CABG. Small caliber targets. Off CPB with low dose pressor support. Kept intubated overnight. Successfully extubated POD#1. Switched to dopa and DDD pacing for optimized hemodynamics. Secondary prevention with baby ASA, BB and statin when appropriate. Longstanding persistent AF/chronic anticoagulation w Coumadin - Early post Maze rhythm predominantly JR/slow AF and paced for hemodynamic support. AF prophylaxis with amiodarone discontinued. Antithrombotic prophylaxis with Coumadin to resume once potential perm pacing needs clearer. Prior INR parameters of 2-3 sufficient. Acute on CKD3 - Baseline Cr 1.4. Bump to peak of 1.9 on POD#1 resolved with low dose pressor support/augmented renal perfusion. Acute expected blood loss anemia with mild coagulopathy - Stable. No blood/ blood products transfusions required. Care with VTE prophylaxis/anticoag while plts depressed. Postoperative urinary retention - Post prater removal. Appears to have resolved. Plan: Consider CT removal. Cont DDD pacer at 80. Cont dopa @ 2mcg/kg/min. Cont daily diuresis. Hold SQ hep. Tx to SDU. Dispo - Anticipate SNF in 3-4 days. 08/14/17 07:22 Subjective: Happy to be voiding normally again. Attributed to learning the right urination angle. Cont to feel dizzy and weak when standing. Yet to leave the room. Not much appetite. Objective: Vital Signs Temp Pulse Resp BP Pulse Ox 37.2 C 80 16 122/68 H 97 08/13/17 10:00 08/14/17 06:00 08/14/17 04:00 08/14/17 06:00 08/14/17 04:00 Laboratory Results 08/14/17 04:15 08/14/17 04:15 08/13/17 08/14/17 08/15/17 05:59 05:59 05:59 Intake Total 2709 1464 Output Total 1280 1575 Balance 1429 -111 PT 15.0 SEC (12.0-15.0) 08/14/17 04:15 INR 1.16 (0.83-1.16) 08/14/17 04:15 Dopa @ 2 mcg for MAP > 65. Remains AV paced. Underlying JR 40s. Improved fluid balance with lasix. +8 kg overall. CTOP below removal criteria. Cr normalizing. Inc platelet depression on subq hep. Physical Exam - Physical Exam General Appearance: alert, no apparent distress Respiratory: lungs clear (grossly), other (CTs y-d to pleurovac, serosang drainage, small tidal, no air leak) Cardiac/Chest: regular rate, rhythm (paced), friction rub, other (Sternum grossly stable. Sternotomy and LLE venotomy dressings CDI) Abdomen: normal bowel sounds, non-tender, soft Skin: warm/dry Extremities: swelling (1+ gen) ICD10 Worksheet Patient Problems: Problems Problem Status Onset Acute blood loss anemia Acute CAD, multiple vessel Acute CKD (chronic kidney disease), stage III Acute Chronic anticoagulation Acute Chronic atrial fibrillation Acute S/P CABG x 4 Acute ~08/11/17 S/P ablation of atrial fibrillation Acute ~08/11/17
[2017-08-14] MEDS: FUROSEMIDE 40 MG/4 ML VIAL IVP SCH (09:36)
[2017-08-14] MEDS: ASPIRIN 81 MG CHEWABLE TAB PO SCH (09:37)
[2017-08-14] MEDS: PANTOPRAZOLE SODIUM 40 MG TAB PO SCH (09:37)
[2017-08-14] MEDS: ONDANSETRON 4 MG/2 ML VIAL IVP PRN (09:37)
[2017-08-14] MEDS: SENNOSIDES/DOCUSATE SODIUM TAB PO SCH ×2 (09:37→22:56)
[2017-08-14] MEDS: POTASSIUM CL 10 MEQ TAB PO SCH (09:37)
[2017-08-14] MEDS: ATORVASTATIN CALCIUM 40 MG TAB PO SCH (09:37)
--- NOTE | 2017-08-14 11:47 | PDINTPN ---
Operational Test Mechanic Progress Note Assessment/Plan: Assessment: S/P CABG, MAZE: Continues to have CHB with junctional escape. On dual chamber pacing. Hyperglycemia: Normalized now. Anemia: Remains stable. No significant active bleeding. Plan: Continue SSI. Follow H/H. Keep in SDU as long as he's needing pacer. 08/12/17 17:45 08/14/17 11:46 Subjective: Feels OK, pain improved a bit since CTs removed, but feels more queasy. Lightheaded when tried standing up. Objective: Vital Signs Temp Pulse Resp BP Pulse Ox 36.8 C 100 22 H 105/54 L 100 08/14/17 08:00 08/14/17 11:00 08/14/17 11:00 08/14/17 11:00 08/14/17 11:00 Laboratory Results 08/14/17 04:15 08/14/17 04:15 08/13/17 08/14/17 08/15/17 05:59 05:59 05:59 Intake Total 2709 1464 Output Total 1280 1575 Balance 1429 -111 PT 15.0 SEC (12.0-15.0) 08/14/17 04:15 INR 1.16 (0.83-1.16) 08/14/17 04:15 Physical Exam - Physical Exam General Appearance: alert, no apparent distress EENT: normal ENT inspection Neck: normal inspection Respiratory: lungs clear, normal breath sounds Cardiac/Chest: regular rate, rhythm, systolic murmur, friction rub (softer), No edema Abdomen: non-tender, soft Skin: normal color, warm/dry Extremities: normal inspection Neuro/Psych: alert, normal mood/affect, oriented x 3 ICD10 Worksheet Patient Problems: Problems Problem Status Onset Acute blood loss anemia Acute CAD, multiple vessel Acute CKD (chronic kidney disease), stage III Acute Chronic anticoagulation Acute Chronic atrial fibrillation Acute S/P CABG x 4 Acute ~08/11/17 S/P ablation of atrial fibrillation Acute ~08/11/17
--- NOTE | 2017-08-14 16:23 | ASMTCMCOM ---
CM Note CM Note Notes: Spoke with Mery at [facility] today. Patient will most likely be ready for d/c Friday, unless he needs a pacemaker. This may put d/c to Friday or Friday of next week. Mery would like updated notes on patient's progress on Friday. [facility] has accepted patient. CM will forward notes to her Friday. CM will follow. Date Signed: 08/14/2017 04:22 PM Electronically Signed By:Krystal Pena LCSW
[2017-08-14] MEDS: HYDROCODONE/APAP 5/325 TAB PO PRN (22:56)
[2017-08-15 06:02] LABS: INR 1.11 (0.83-1.16); PROTIME(PATIENT) 14.5 SEC (12.0-15.0)
--- NOTE | 2017-08-15 07:38 | SOAPPROG ---
SOAP Progress Note Assessment/Plan: POD#4 CABG x 4 (CHAPIN-LAD, SV-D1, SV-OM1, SV-PDA), EVH LLE, CoxMaze 4 with cryothermy and AtriClip ligation TAMIR Sx severe CAD w preserved LV systolic fx - s/p CABG x 4. Secondary prevention with baby ASA, BB and statin when appropriate. 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 Antithrombotic prophylaxis with Coumadin to be started once pacer need determined, INR goal 2-3. Acute on CKD3 - Back to baseline Cr of 1.4 with adequate UOP and without metabolic derangements. Acute blood loss anemia - No blood/blood products transfusions required. Postoperative urinary retention - Resolved. DVT prophylaxis - SCDs/heparin SQ. Subjective: Lightheadedness improving although still has periods where he feels weak. Walked yesterday. Pain well-controlled. Objective: Vital Signs Temp Pulse Resp BP Pulse Ox 36.7 C 80 17 120/66 95 08/15/17 04:00 08/15/17 06:00 08/15/17 06:00 08/15/17 06:00 08/15/17 06:00 Laboratory Results 08/15/17 05:45 08/15/17 05:45 08/14/17 08/15/17 08/16/17 05:59 05:59 05:59 Intake Total 1464 1366 Output Total 1575 1150 Balance -111 216 PT 14.5 SEC (12.0-15.0) 08/15/17 05:45 INR 1.11 (0.83-1.16) 08/15/17 05:45 Physical Exam - Physical Exam General Appearance: WD/WN, alert, no apparent distress EENT: No scleral icterus (R), No scleral icterus (L) Neck: normal inspection Respiratory: No respiratory distress Cardiac/Chest: other (asystolic, pacer dependent) Abdomen: non-tender, soft, No distended Skin: normal color, warm/dry Extremities: pedal edema Neuro/Psych: no motor/sensory deficits, alert, normal mood/affect, oriented x 3 ICD10 Worksheet Patient Problems: Problems Problem Status Onset Acute blood loss anemia Acute CAD, multiple vessel Acute CKD (chronic kidney disease), stage III Acute Chronic anticoagulation Acute Chronic atrial fibrillation Acute S/P CABG x 4 Acute ~08/11/17 S/P ablation of atrial fibrillation Acute ~08/11/17
[2017-08-15] MEDS: POTASSIUM CL 10 MEQ TAB PO SCH ×2 (09:56→16:50)
[2017-08-15] MEDS: PANTOPRAZOLE SODIUM 40 MG TAB PO SCH (09:56)
[2017-08-15] MEDS: FUROSEMIDE 40 MG/4 ML VIAL IVP SCH ×2 (09:56→16:50)
[2017-08-15] MEDS: POLYETHYLENE GLYCOL 3350 17 GM PKT PO PRN (09:56)
[2017-08-15] MEDS: ATORVASTATIN CALCIUM 40 MG TAB PO SCH (09:56)
[2017-08-15] MEDS: ASPIRIN 81 MG CHEWABLE TAB PO SCH (09:56)
[2017-08-15] MEDS: SENNOSIDES/DOCUSATE SODIUM TAB PO SCH ×2 (09:56→21:58)
--- NOTE | 2017-08-15 11:41 | ASMTCMCOM ---
CM Note CM Note Notes: Spoke with patient today about d/c plan. He is hoping to get a pacemaker on Friday and then is in agreement with doing his rehab with [facility]. CM to forward clinical updates to Mery at [facility] on Friday. CM will follow. Date Signed: 08/15/2017 11:41 AM Electronically Signed By:Krystal Pena LCSW
--- NOTE | 2017-08-15 12:22 | SOAPPROG ---
NELY Progress Note Assessment/Plan: Assessment: 1. Postop coronary artery bypass grafting Maze procedure with underlying junctional rhythm at 30 verses asystole. Dependent on temporary pacing wires at this time. Impression: Underlying rhythm this morning junctional at 30. Prior underlying rhythm asystole. Currently doing well with temporary wires in place. He is continuing to improve postoperatively. Recommendations are for continued telemetry monitoring/observation. Await recovery of the sinus node. Considerations for dual-chamber permanent pacemaker. 08/15/17 12:20 Subjective: Doing well postoperatively. Still weak. No chest pain. Episode of weakness associated with junctional rhythm at 30. Objective: Medications Generic Name Dose Route Start Last Admin Trade Name Freq PRN Reason Stop Dose Admin Aspirin 81 mg 08/12/17 09:00 08/15/17 09:56 Aspirin PO 02/08/18 08:59 81 mg DAILY NOAH Atorvastatin Calcium 40 mg 08/14/17 09:00 08/15/17 09:56 Lipitor PO 02/10/18 08:59 40 mg DAILY NOAH Furosemide 40 mg 08/15/17 15:00 Lasix Injection IVP 02/11/18 14:59 BID@0900,1500 [facility] Pantoprazole Sodium 40 mg 08/12/17 09:00 08/15/17 09:56 Protonix PO 02/08/18 08:59 40 mg DAILY NOAH Vital Signs Temp Pulse Resp BP Pulse Ox 36.6 C 80 18 90/72 L 95 08/15/17 10:00 08/15/17 10:00 08/15/17 10:00 08/15/17 10:00 08/15/17 10:00 Laboratory Results 08/15/17 05:45 08/15/17 05:45 08/14/17 08/15/17 08/16/17 05:59 05:59 05:59 Intake Total 1464 1366 Output Total 1575 1150 Balance -111 216 PT 14.5 SEC (12.0-15.0) 08/15/17 05:45 INR 1.11 (0.83-1.16) 08/15/17 05:45 Physical Exam - Physical Exam General Appearance: mild distress Neck: supple Respiratory: lungs clear, rhonchi Cardiac/Chest: regular rate, rhythm Abdomen: non-tender, soft Extremities: pedal edema Neuro/Psych: alert, normal mood/affect, oriented x 3 ICD10 Worksheet Patient Problems: Problems Problem Status Onset Acute blood loss anemia Acute S/P ablation of atrial fibrillation Acute ~08/11/17 S/P CABG x 4 Acute ~08/11/17 Chronic anticoagulation Acute Chronic atrial fibrillation Acute CKD (chronic kidney disease), stage III Acute CAD, multiple vessel Acute
[2017-08-15] MEDS: HYDROCODONE/APAP 5/325 TAB PO PRN (21:58)
--- NOTE | 2017-08-16 07:44 | SOAPPROG ---
SOAP Progress Note Assessment/Plan: POD#5 CABG x 4 (CHAPIN-LAD, SV-D1, SV-OM1, SV-PDA), EVH LLE, CoxMaze 4 with cryothermy and AtriClip ligation TAMIR Sx severe CAD w preserved LV systolic fx - s/p CABG x 4. Secondary prevention with baby ASA, BB and statin when appropriate. Longstanding persistent AF s/p Cardoza-Maze IV - Antithrombotic prophylaxis with Coumadin to be started once pacer need determined, INR goal 2-3. Postoperative junctional rhythm with pauses - continue AV pacing. Will likely need PPM. Cardiology following. Acute on CKD3 - Back to baseline Cr of 1.4 with adequate UOP and without metabolic derangements. Acute blood loss anemia - No blood/blood products transfusions required. Postoperative urinary retention - Resolved. DVT prophylaxis - SCDs/heparin SQ (restarted now that plts > 100) Subjective: No complaints. Feels stronger. Objective: Vital Signs Temp Pulse Resp BP Pulse Ox 36.4 C 80 19 144/79 H 92 08/16/17 07:39 08/16/17 07:39 08/16/17 07:39 08/16/17 07:39 08/16/17 07:39 Laboratory Results 08/16/17 06:00 08/16/17 06:00 08/15/17 08/16/17 08/17/17 05:59 05:59 05:59 Intake Total 1366 1800 Output Total 1150 1725 Balance 216 75 PT 14.5 SEC (12.0-15.0) 08/15/17 05:45 INR 1.11 (0.83-1.16) 08/15/17 05:45 Physical Exam - Physical Exam General Appearance: WD/WN, alert, no apparent distress EENT: No scleral icterus (R), No scleral icterus (L) Neck: normal inspection Respiratory: No respiratory distress Cardiac/Chest: other (JR 30s with pauses ) Abdomen: non-tender, soft, No distended Skin: normal color, warm/dry Extremities: pedal edema (chronic) Neuro/Psych: no motor/sensory deficits, alert, normal mood/affect, oriented x 3 ICD10 Worksheet Patient Problems: Problems Problem Status Onset Acute blood loss anemia Acute CAD, multiple vessel Acute CKD (chronic kidney disease), stage III Acute Chronic anticoagulation Acute Chronic atrial fibrillation Acute S/P CABG x 4 Acute ~08/11/17 S/P ablation of atrial fibrillation Acute ~08/11/17
[2017-08-16] MEDS: ASPIRIN 81 MG CHEWABLE TAB PO SCH (08:14)
[2017-08-16] MEDS: ATORVASTATIN CALCIUM 40 MG TAB PO SCH (08:15)
[2017-08-16] MEDS: SENNOSIDES/DOCUSATE SODIUM TAB PO SCH ×2 (08:15→19:46)
[2017-08-16] MEDS: FUROSEMIDE 40 MG/4 ML VIAL IVP SCH ×2 (08:15→14:35)
[2017-08-16] MEDS: PANTOPRAZOLE SODIUM 40 MG TAB PO SCH (08:15)
[2017-08-16] MEDS: POTASSIUM CL 10 MEQ TAB PO SCH ×2 (08:15→14:35)
--- NOTE | 2017-08-16 09:50 | PDCARPN ---
Cardiology Progress Note Assessment/Plan: Assessment: 1. Junctional rhythm and Asystole 2. Pacer dependent 3. POD #5 CABG x 4 4. Cardoza 4 Maze Plan: -paced via epicardial leads -rechallenge tomorrow -will most likely need PPM -Will plan for PPM on Friday08/16/17 09:46 Subjective: 77 year gentleman POD #5, CABG x4 with Cardoza 4 Maze procedure with post operative asytole and junctional rhythm who remains pacer dependent. Reviewed/Discussed With: multidisciplinary team Objective: Vital Signs (8 Hrs) Temp Pulse Resp BP Pulse Ox 08/16/17 07:39 36.4 C 80 19 144/79 H 92 08/16/17 04:00 80 17 127/76 H 100 Intake/Output (24 Hrs) 08/15/17 08/16/17 08/17/17 05:59 05:59 05:59 Intake Total 1366 1800 Output Total 1150 1725 Balance 216 75 Intake: Oral (ml) 1300 1800 IV Intake (ml) 66 Output: Urine (ml) 1150 1725 Urinal 1150 1725 Other: Weight 100.6 kg 101.9 kg 100.2 kg Number of Voids Urinal 1 Result Diagrams: 08/16/17 06:00 08/16/17 06:00 - Physical Exam Constitutional: no apparent distress Neurologic: AAOx3 Psychiatric: cooperative, interactive ICD10 Worksheet Patient Problems: Problems Problem Status Onset Acute blood loss anemia Acute CAD, multiple vessel Acute CKD (chronic kidney disease), stage III Acute Chronic anticoagulation Acute Chronic atrial fibrillation Acute S/P CABG x 4 Acute ~08/11/17 S/P ablation of atrial fibrillation Acute ~08/11/17
[2017-08-16] MEDS: HEPARIN 5,000 UNIT/0.5 ML SYR SC SCH ×2 (14:35→22:43)
[2017-08-16] MEDS: POLYETHYLENE GLYCOL 3350 17 GM PKT PO PRN (16:59)
[2017-08-16] MEDS: HYDROCODONE/APAP 5/325 TAB PO PRN (19:46)
[2017-08-17] MEDS: HEPARIN 5,000 UNIT/0.5 ML SYR SC SCH ×3 (06:24→20:31)
[2017-08-17] MEDS ORDERED: METOLAZONE 5 MG TAB PO ONE (08:05)
--- NOTE | 2017-08-17 08:16 | SOAPPROG ---
SOAP Progress Note Assessment/Plan: POD#6 CABG x 4 (CHAPIN-LAD, SV-D1, SV-OM1, SV-PDA), EVH LLE, CoxMaze 4 with cryothermy and AtriClip ligation TAMIR Sx severe CAD w preserved LV systolic fx - s/p CABG x 4. Secondary prevention with baby ASA and statin and beta-ja once PPM placed. Longstanding persistent AF s/p Cardoza-Maze IV - Antithrombotic prophylaxis with Coumadin to be tonight, INR goal 2-3. Postoperative junctional rhythm with pauses - continue AV pacing. PPM to be placed tomorrow. Acute on CKD3 - Back to baseline Cr of 1.4 with adequate UOP and without metabolic derangements. Will recheck BMP tomorrow. Acute blood loss anemia - No blood/blood products transfusions required. Postoperative urinary retention - Resolved. DVT prophylaxis - SCDs/heparin SQ Disposition - plan for SNF Friday Subjective: Minor lightheadedness when ambulating. Had a large BM which was relieving. Doesn 't have help at home and would appreciate some assistance while regaining strength. Objective: Vital Signs Temp Pulse Resp BP Pulse Ox 36.6 C 80 17 128/80 H 97 08/16/17 20:00 08/17/17 04:00 08/17/17 00:00 08/17/17 00:00 08/17/17 04:00 Laboratory Results 08/16/17 06:00 08/16/17 06:00 08/16/17 08/17/17 08/18/17 05:59 05:59 05:59 Intake Total 1800 950 Output Total 1725 1800 Balance 75 -850 PT 14.5 SEC (12.0-15.0) 08/15/17 05:45 INR 1.11 (0.83-1.16) 08/15/17 05:45 Physical Exam - Physical Exam General Appearance: WD/WN, alert, no apparent distress EENT: No scleral icterus (R), No scleral icterus (L) Neck: normal inspection Respiratory: No respiratory distress Cardiac/Chest: other (JR with pauses) Abdomen: non-tender, soft, No distended Skin: normal color, warm/dry Extremities: pedal edema Neuro/Psych: no motor/sensory deficits, alert, normal mood/affect, oriented x 3 ICD10 Worksheet Patient Problems: Problems Problem Status Onset Acute blood loss anemia Acute CAD, multiple vessel Acute CKD (chronic kidney disease), stage III Acute Chronic anticoagulation Acute Chronic atrial fibrillation Acute S/P CABG x 4 Acute ~08/11/17 S/P ablation of atrial fibrillation Acute ~08/11/17
[2017-08-17] MEDS: ASPIRIN 81 MG CHEWABLE TAB PO SCH (08:52)
[2017-08-17] MEDS: POTASSIUM CL 10 MEQ TAB PO SCH ×2 (08:52→15:02)
[2017-08-17] MEDS: SENNOSIDES/DOCUSATE SODIUM TAB PO SCH ×2 (08:53→20:22)
[2017-08-17] MEDS: ATORVASTATIN CALCIUM 40 MG TAB PO SCH (08:53)
[2017-08-17] MEDS: PANTOPRAZOLE SODIUM 40 MG TAB PO SCH (08:53)
[2017-08-17] MEDS: FUROSEMIDE 40 MG/4 ML VIAL IVP SCH ×2 (08:53→15:03)
[2017-08-17] MEDS ORDERED: WARFARIN SODIUM 5 MG TAB PO SCH (09:00)
[2017-08-17] MEDS: WARFARIN SODIUM 5 MG TAB PO SCH (15:03)
[2017-08-17] MEDS: HYDROCODONE/APAP 5/325 TAB PO PRN (20:22)
[2017-08-18 06:05] LABS: INR 1.14 (0.83-1.16); PROTIME(PATIENT) 14.8 SEC (12.0-15.0)
[2017-08-18] MEDS: HEPARIN 5,000 UNIT/0.5 ML SYR SC SCH ×3 (06:06→22:28)
--- NOTE | 2017-08-18 07:09 | SOAPPROG ---
SOAP Progress Note Assessment/Plan: POD#7 CABG x 4 (CHAPIN-LAD, SV-D1, SV-OM1, SV-PDA), EVH LLE, CoxMaze 4 with cryothermy and AtriClip ligation TAMIR Sx severe CAD w preserved LV systolic fx - s/p CABG x 4. Secondary prevention with baby ASA and statin and beta-ja once PPM placed. Longstanding persistent AF s/p Cardoza-Maze IV - Antithrombotic prophylaxis with Coumadin, INR goal 2-3. Postoperative junctional rhythm with pauses - continue AV pacing. PPM to be placed today. Acute on CKD3 - At baseline Cr of 1.4 with adequate UOP and without metabolic derangements. Acute blood loss anemia - No blood/blood products transfusions required. Postoperative urinary retention - Resolved. DVT prophylaxis - SCDs/heparin SQ Disposition - plan for SNF Friday Subjective: No complaints. Relieved PPM to be placed. Objective: Vital Signs Temp Pulse Resp BP Pulse Ox 36.9 C 80 14 131/75 H 100 08/17/17 20:00 08/18/17 04:00 08/18/17 04:00 08/18/17 04:00 08/18/17 04:00 Laboratory Results 08/18/17 05:28 08/18/17 05:28 08/17/17 08/18/17 08/19/17 05:59 05:59 05:59 Intake Total 950 1100 Output Total 1800 3126 Balance -850 -2025 PT 14.8 SEC (12.0-15.0) 08/18/17 05:28 INR 1.14 (0.83-1.16) 08/18/17 05:28 Physical Exam - Physical Exam General Appearance: WD/WN, alert, no apparent distress EENT: No scleral icterus (R), No scleral icterus (L) Neck: normal inspection Respiratory: No respiratory distress Cardiac/Chest: other (AV paced) Abdomen: non-tender, soft, No distended Skin: normal color, warm/dry Extremities: pedal edema Neuro/Psych: no motor/sensory deficits, alert, normal mood/affect, oriented x 3 ICD10 Worksheet Patient Problems: Problems Problem Status Onset Acute blood loss anemia Acute CAD, multiple vessel Acute CKD (chronic kidney disease), stage III Acute Chronic anticoagulation Acute Chronic atrial fibrillation Acute S/P CABG x 4 Acute ~08/11/17 S/P ablation of atrial fibrillation Acute ~08/11/17
[2017-08-18] MEDS ORDERED: POTASSIUM CL 20 MEQ TAB PO ONE ×2 (07:24→11:15)
[2017-08-18] MEDS: FUROSEMIDE 40 MG/4 ML VIAL IVP SCH (10:47)
[2017-08-18] MEDS: ASPIRIN 81 MG CHEWABLE TAB PO SCH (10:49)
[2017-08-18] MEDS: PANTOPRAZOLE SODIUM 40 MG TAB PO SCH (10:49)
[2017-08-18] MEDS: SENNOSIDES/DOCUSATE SODIUM TAB PO SCH ×2 (10:49→20:07)
[2017-08-18] MEDS: POTASSIUM CL 10 MEQ TAB PO SCH ×2 (10:49→18:43)
[2017-08-18] MEDS: ATORVASTATIN CALCIUM 40 MG TAB PO SCH (10:49)
[2017-08-18] MEDS: FUROSEMIDE 40 MG TAB PO SCH ×2 (11:08→18:29)
--- NOTE | 2017-08-18 12:42 | ASMTCMCOM ---
CM Note CM Note Notes: Sent [facility] updated patient info. Nurse Technician to place pacer today, patient to discharge Friday. Date Signed: 08/18/2017 12:41 PM Electronically Signed By:Kari Welch LCSW
[2017-08-18] MEDS ORDERED: IOPAMIDOL (ISOVUE-300) 50 ML VIAL ONE (14:46)
[2017-08-18] MEDS ORDERED: LIDOCAINE 1% 300 MG/30 ML SDV ONE (14:47)
[2017-08-18] MEDS ORDERED: MIDAZOLAM 2 MG/2 ML VIAL ONE ×2 (14:47→16:27)
[2017-08-18] MEDS ORDERED: fentaNYL 100 MCG/2 ML INJ ONE (14:47)
[2017-08-18] MEDS ORDERED: BUPIVACAINE 0.5% 10 ML SDV ONE ×2 (14:48→15:52)
[2017-08-18] MEDS ORDERED: ceFAZolin 2 GM/SWFI 2 GM/20 ML SYR IVP ONE (15:00)
[2017-08-18] MEDS ORDERED: FUROSEMIDE 40 MG TAB PO SCH (15:00)
[2017-08-18] MEDS ORDERED: BACITRACIN IRRIGATION/NS 50,000 UNITS/1,000 ML BTL IRR ONE (15:00)
[2017-08-18] MEDS ORDERED: NS 1,000 ML IV ONE (15:00)
--- NOTE | 2017-08-18 15:02 | PDPROPOC ---
Sedation Plan of Care Sedation Plan of Care: vital signs stable, mental status noted, patient educated of risks, benefits, alternatives, patient can tolerate sedation ASA Classification: ASA 2 Planned drugs: fentanyl Mallampati Score: Class 2 Mallampati Reference Image: Patient passed 3-3-2 rule?: Yes
--- NOTE | 2017-08-18 15:08 | PDCARPN ---
Cardiology Progress Note Chief Complaint: No cardiovascular complaints were voiced today Assessment/Plan: Assessment: Patient is a 77 y/o male, POD #7 for CABG 4V (CHAPIN-LAD, SV-D1, SV-OM1, SV-PDA), EVH LLE, CoxMaze 4 with cryothermy and AtriClip ligation TAMIR, atrial fibrillation (on coumadin s/p Cardoza-Maze IV with [id number] score of 4), chronic kidney disease, HTN, and HLP, with ongoing complete heart block, in need of PPM implantation. Heparin therapy has been held, and the coumadin (INR) in noted to be subtherapeutic at present. Patient doing well today. No cardiovascular complaints of chest pains or pressure. No PND or orthopnea. Patient has been up in chair for the day. Plan: (1) Will place a PPM (dual chamber) pacer today (2) Continue aggressive medical therapy - coumadin for history of atrial fibrillation - lipitor for HLP - ASA for life - will need to see what patient's blood pressure is post PPM implant. At present, without pacer, would refrain from beta ja use. Outpatient follow up for determination of appropriate therapy is pending. Subjective: No cardiovascular complaints Reviewed/Discussed With: hospitalist, multidisciplinary team Objective: Vital Signs (8 Hrs) Temp Pulse Resp BP Pulse Ox 08/18/17 11:47 36.7 C 80 18 122/70 H 93 08/18/17 10:54 80 73 H 107/62 95 08/18/17 08:45 80 95 08/18/17 07:46 36.6 C 80 20 125/67 H 90 L Intake/Output (24 Hrs) 08/17/17 08/18/17 08/19/17 05:59 05:59 05:59 Intake Total 950 1100 Output Total 1800 3126 875 Balance -850 -2025 -5 Intake: Oral (ml) 950 1100 Output: Urine (ml) 1800 3126 875 Toilet 450 926 425 Urinal 1350 2200 450 Other: Weight 100.2 kg 96 kg Intake Quantity Yes Sufficient Number of Voids Toilet 2 Number of Stools Toilet 0 1 Urinal 1 Result Diagrams: 08/18/17 05:28 08/18/17 05:28 EKG: AV paced Telemetry: AV sequential pacing - Physical Exam Constitutional: WDWN, healthy appearing, no apparent distress Eyes: PERRL, EOMI Ears, Nose, Mouth, Throat: moist mucous membranes Cardiovascular: regular rate and rhythm, no murmurs, no rubs, pulses symmetric bilat, No jugular vein distention Peripheral Pulses: 2+: dorsalis-pedis (R), dorsalis-pedis (L) Respiratory: clear to auscultate bilat, no crackles, no wheezes Gastrointestinal: normoactive bowel sounds Skin: no rashes, warm Musculoskeletal: no muscular tenderness Neurologic: AAOx3, CN II-XII grossly intact Psychiatric: cooperative, interactive, following commands ICD10 Worksheet Patient Problems: Problems Problem Status Onset Acute blood loss anemia Acute CAD, multiple vessel Acute CKD (chronic kidney disease), stage III Acute Chronic anticoagulation Acute Chronic atrial fibrillation Acute S/P CABG x 4 Acute ~08/11/17 S/P ablation of atrial fibrillation Acute ~08/11/17
[2017-08-18] MEDS: WARFARIN SODIUM 5 MG TAB PO SCH (15:32)
--- NOTE | 2017-08-18 17:26 | SUROPNOTE ---
[facility]LL[facility] Operative Report - Surgery PROCEDURE: (1) LEFT SUBCLAVIAN VENOGRAM (2) PPM IMPLANT INDICATION: (1) JUNCTIONAL/ASYSTOLE WITHOUT POST CABG EPICARDIAL PACING PROCEDURE DETAILS: After consent was obtained, the patient was taken to the cardiac clinical lab clerk and placed on the table in the usual sterile fashion. Venogram was performed to isolate the left subclavian vein. Lidocaine was used for local anesthetic to the left subclavian region. Two separate sticks to gain access were performed and the wires were left in place. A pocket was created with #12 blade and bovie. A raytech was placed in the pocket after being soaked in Bacitracin. The wires were pulled into the pocket and the ventricular lead was placed first Ventricular lead results: SJM Tendril STS 2088TC/58 with S# [id number] Capture at 0.4V at 0.5 ms, 0.8 mA and 12.4 mV, 4.5 V/s and 492 ohms This lead was sutured into position Atrial lead results: SJM Tendril STS 2088TC/52 S# [id number] Capture at 0.6V at 0.5 ms, 1.5 mA and sensing at 14.6 mV and 375 ohms This lead was sutured into position The pocket was reinspected for haemostasis, and the generator was then attached to both atrial and ventricular leads. The pacer was sutured into position. The pocket was closed with 2-0, 3-0, and 4-0. No complications were appreciated Fluoroscopic review of the device and leads was undertaken AM CXR is pending with CXR this evening ongoing at present AM interrogation of the device.
--- NOTE | 2017-08-18 17:48 | CPEKG ---
Heart Rate: 63 RR Interval: 952 P-R Interval: 160 QRSD Interval: 138 QT Interval: 444 QTC Interval: 455 QRS [place]: 33 T Wave [place]: -37 EKG Severity - ABNORMAL ECG - EKG Impression: ATRIAL-PACED RHYTHM EKG Impression: RIGHT BUNDLE BRANCH BLOCK EKG Impression: ATRIAL PACED RHYTHM HAS REPLACED ATRIAL FIBRILLATION NOTED ON PRIOR ECG Electronically Signed By: Shamar Ramos 19-Aug-2017 11:08:48
[2017-08-18] MEDS: HYDROCODONE/APAP 5/325 TAB PO PRN (20:07)
[2017-08-19 04:18] LABS: PLATELET COUNT 215 10^3/uL (150-400)
[2017-08-19 04:48] LABS: INR 1.18 (0.83-1.16); PROTIME(PATIENT) 15.2 SEC (12.0-15.0)
[2017-08-19] MEDS: HEPARIN 5,000 UNIT/0.5 ML SYR SC SCH ×2 (05:55→14:09)
--- NOTE | 2017-08-19 07:29 | SOAPPROG ---
SOAP Progress Note Assessment/Plan: Assessment: POD#8 CABG x 4 (CHAPIN-LAD, SV-D1, SV-OM1, SV-PDA), EVH LLE, CoxMaze 4 with cryothermy and AtriClip ligation TAMIR POD#1 Placement dual chamber permanent pacemaker by cardiology Sx severe CAD w preserved LV systolic fx - s/p CABG. Small caliber targets. Off CPB with low dose pressor support. Kept intubated overnight. Successfully extubated POD#1. Switched to dopa and DDD pacing for optimized hemodynamics. Secondary prevention with baby ASA, BB and statin when appropriate. Longstanding persistent AF/chronic anticoagulation w Coumadin - Early post Maze rhythm predominantly JR/slow AF, requiring pacing and negating antinodal prophylaxis. Eventual PPM placement for development of pauses. Antithrombotic prophylaxis with Coumadin resumed. Prior INR parameters of 2-3 sufficient. Acute on CKD3 - Baseline Cr 1.4. Bump to peak of 1.9 on POD#1 resolved with low dose pressor support/augmented renal perfusion pressures. Acute expected blood loss anemia with mild coagulopathy - Stable. No blood/ blood products transfusions required. Postoperative urinary retention - Resolved without intervention. Plan: Await CXR. Start metoprolol 12.5 mg BID. Possible tx to SNF ([facility]) later today. 08/19/17 07:28 Subjective: Doing ok. Still lightheaded and a little nauseous with activity. Objective: Vital Signs Temp Pulse Resp BP Pulse Ox 36.7 C 66 16 132/71 H 92 08/19/17 02:39 08/19/17 02:39 08/19/17 02:39 08/19/17 02:39 08/19/17 02:39 Laboratory Results 08/19/17 03:18 08/19/17 03:18 08/18/17 08/19/17 08/20/17 05:59 05:59 05:59 Intake Total 1100 600 Output Total 3126 1775 Balance -2025 -1174 PT 15.2 SEC (12.0-15.0) H 08/19/17 03:18 INR 1.18 (0.83-1.16) H 08/19/17 03:18 Apaced at 60. Holding SBP > 110. On and off O2. Negative fluid balance, within 2.5 kg admit wt. Labs ok. Physical Exam - Physical Exam General Appearance: alert, no apparent distress Respiratory: decreased breath sounds (left base) Cardiac/Chest: regular rate, rhythm, friction rub, other (Sternotomy and LLE venotomy CDI) Abdomen: non-tender, soft Skin: warm/dry Extremities: swelling (trace) ICD10 Worksheet Patient Problems: Problems Problem Status Onset Acute blood loss anemia Acute CAD, multiple vessel Acute CKD (chronic kidney disease), stage III Acute Chronic anticoagulation Acute Chronic atrial fibrillation Acute S/P CABG x 4 Acute ~08/11/17 S/P ablation of atrial fibrillation Acute ~08/11/17
[2017-08-19] MEDS: POTASSIUM CL 20 MEQ TAB PO SCH (08:07)
[2017-08-19] MEDS: FUROSEMIDE 40 MG TAB PO SCH (08:07)
[2017-08-19] MEDS: ASPIRIN 81 MG CHEWABLE TAB PO SCH (08:07)
[2017-08-19] MEDS: PANTOPRAZOLE SODIUM 40 MG TAB PO SCH (08:08)
[2017-08-19] MEDS: ATORVASTATIN CALCIUM 40 MG TAB PO SCH (08:08)
[2017-08-19] MEDS: METOPROLOL TARTRATE 25 MG TAB PO SCH ×2 (08:08→20:54)
--- NOTE | 2017-08-19 08:59 | CPEKG ---
Heart Rate: 66 RR Interval: 909 P-R Interval: 116 QRSD Interval: 138 QT Interval: 468 QTC Interval: 491 QRS [place]: 33 T Wave [place]: -38 EKG Severity - ABNORMAL ECG - EKG Impression: ATRIAL-PACED RHYTHM EKG Impression: RIGHT BUNDLE BRANCH BLOCK EKG Impression: BORDERLINE INFERIOR Q WAVES Electronically Signed By: Shamar Ramos 19-Aug-2017 11:08:54
[2017-08-19] MEDS ORDERED: SENNOSIDES/DOCUSATE SODIUM TAB PO PRN (09:00)
--- NOTE | 2017-08-19 10:11 | PDCARPN ---
Cardiology Progress Note Chief Complaint: Ongoing weakness and dizziness. Assessment/Plan: Assessment: 08-19-17 Patient is now POD#1 for PPM implant given junctional/asystole post CABG (POD#8 ) with Cardoza Maze and AtriClip ligation of the TAMIR. Patient doing well today. No cardiovascular complaints of chest pains or pressure. Patient sitting up in chair. Implant site was clean and dry. No haematoma noted. Pacer interrogation with normal device function noted. Chest x-ray without pneumothorax this morning (or yesterday). 08-18-17 Patient is a 77 y/o male, POD #7 for CABG 4V (CHAPIN-LAD, SV-D1, SV-OM1, SV-PDA), EVH LLE, CoxMaze 4 with cryothermy and AtriClip ligation TAMIR, atrial fibrillation (on coumadin s/p Cardoza-Maze IV with [id number] score of 4), chronic kidney disease, HTN, and HLP, with ongoing complete heart block, in need of PPM implantation. Heparin therapy has been held, and the coumadin (INR) in noted to be subtherapeutic at present. Patient doing well today. No cardiovascular complaints of chest pains or pressure. No PND or orthopnea. Patient has been up in chair for the day. Plan: (1) coumadin should continue for atrial fibrillation history (2) ASA should continue for life with CAD/CABG history (3) Statins for HLP (maintain annual assessment of cholesterol and LFTs0 (4) Aggressive OT/PT and cardiac rehab (5) Outpatient follow up with cardiology in 5-7 days Subjective: No cardiovascular complaints were voiced today. Reviewed/Discussed With: hospitalist, multidisciplinary team Objective: Vital Signs (8 Hrs) Temp Pulse Resp BP Pulse Ox 08/19/17 07:39 36.8 C 64 12 138/68 H 94 08/19/17 02:39 36.7 C 66 16 132/71 H 92 Intake/Output (24 Hrs) 08/18/17 08/19/17 08/20/17 05:59 05:59 05:59 Intake Total 1100 600 Output Total 3126 1775 Balance -2025 Intake: Oral (ml) 1100 200 IV Intake (ml) 400 Output: Urine (ml) 3126 1775 Toilet 926 425 Urinal 2200 1350 Other: Weight 96 kg 94.8 kg Intake Quantity Yes Sufficient Number of Voids Toilet 2 Urinal 1 Number of Stools Toilet 1 Result Diagrams: 08/19/17 03:18 08/19/17 03:18 EKG: Atrial pacing Telemetry: Atrial pacing - Physical Exam Constitutional: WDWN, healthy appearing, no apparent distress Eyes: PERRL, EOMI Ears, Nose, Mouth, Throat: moist mucous membranes Cardiovascular: regular rate and rhythm, no murmurs, pulses symmetric bilat, No jugular vein distention Peripheral Pulses: 2+: dorsalis-pedis (R), dorsalis-pedis (L) Respiratory: clear to auscultate bilat, no crackles, no wheezes Gastrointestinal: normoactive bowel sounds Skin: no rashes, no edema Musculoskeletal: no muscular tenderness Neurologic: AAOx3, CN II-XII grossly intact Psychiatric: cooperative, interactive, following commands ICD10 Worksheet Patient Problems: Problems Problem Status Onset Acute blood loss anemia Acute CAD, multiple vessel Acute CKD (chronic kidney disease), stage III Acute Chronic anticoagulation Acute Chronic atrial fibrillation Acute S/P CABG x 4 Acute ~08/11/17 S/P ablation of atrial fibrillation Acute ~08/11/17
[2017-08-19] MEDS ORDERED: LIDOCAINE 1% 300 MG/30 ML SDV ONE (15:31)
[2017-08-19] MEDS: WARFARIN SODIUM 5 MG TAB PO SCH (17:45)
[2017-08-19] MEDS: HYDROCODONE/APAP 5/325 TAB PO PRN (20:54)
--- NOTE | 2017-08-20 06:50 | SOAPPROG ---
SOAP Progress Note Assessment/Plan: Assessment: POD#9 CABG x 4 (CHAPIN-LAD, SV-D1, SV-OM1, SV-PDA), EVH LLE, CoxMaze 4 with cryothermy and AtriClip ligation TAMIR POD#2 Placement dual chamber permanent pacemaker by cardiology POD#1 850 ml left thoracentesis Sx severe CAD w preserved LV systolic fx - s/p CABG. Small caliber targets. Off CPB with low dose pressor support. Kept intubated overnight. Successfully extubated POD#1. Switched to dopa and DDD pacing for optimized hemodynamics. Moderate sized left pleural effusion refractory to diuresis evacuated by thoracentesis. Secondary prevention with baby ASA, BB and statin. Longstanding persistent AF/chronic anticoagulation w Coumadin - Early post Maze rhythm predominantly JR/slow AF, requiring pacing and negating antinodal prophylaxis. Eventual PPM placement for development of pauses. Antithrombotic prophylaxis with Coumadin resumed. Prior INR parameters of 2-3 sufficient. Acute on CKD3 - Baseline Cr 1.4. Bump to peak of 1.9 on POD#1 resolved with low dose pressor support/augmented renal perfusion pressures. Acute expected blood loss anemia with mild coagulopathy - Stable. No blood/ blood products transfusions required. Postoperative urinary retention - Resolved without intervention. Plan: Ok for tx to SNF ([facility]) today. 08/20/17 06:48 Subjective: Feels well. Recognizes that has "a ways to go" to recover stamina and stability and ready to go to [facility]. Objective: Vital Signs Temp Pulse Resp BP Pulse Ox 37.0 C 64 19 110/69 99 08/20/17 03:35 08/20/17 03:35 08/20/17 03:35 08/20/17 03:35 08/20/17 03:35 Laboratory Results 08/19/17 03:18 08/19/17 03:18 08/19/17 08/20/17 08/21/17 05:59 05:59 05:59 Intake Total 600 750 Output Total 1775 850 Balance -1175 -100 PT REJ 08/20/17 04:50 INR REJ 08/20/17 04:50 Apaced. SBPs > 100. Excellent sats on RA. Adequate fluid balance. Physical Exam - Physical Exam General Appearance: alert, no apparent distress Respiratory: lungs clear (grossly, pacer splint in place) Cardiac/Chest: regular rate, rhythm, other (Sternum grossly stable. Sternotomy and LLE venotomy CDI ) Abdomen: non-tender, soft Skin: warm/dry Extremities: swelling (trace-1+ dependent) ICD10 Worksheet Patient Problems: Problems Problem Status Onset Acute blood loss anemia Acute CAD, multiple vessel Acute CKD (chronic kidney disease), stage III Acute Chronic anticoagulation Acute Chronic atrial fibrillation Acute S/P CABG x 4 Acute ~08/11/17 S/P ablation of atrial fibrillation Acute ~08/11/17
--- NOTE | 2017-08-20 07:41 | PDIAF ---
- Diagnosis Diagnosis: CAD, PAF s/p CABG, CoxMazeIV; post op JR/pauses requiring perm pacer Code Status: Full Code - Medication Management Discharge Medications: Medications to Continue on Transfer Atorvastatin Calcium [Lipitor 40 mg (*)] 40 mg PO DAILY 08/01/17 [Last Taken ] Warfarin Sodium [Coumadin 5MG (*)] 5 mg PO DAILY 08/01/17 [Last Taken 08/06/17] Acetaminophen [Tylenol 325mg (*)] 325 - 650 mg PO Q4HRS PRN tab 08/20/17 [Last Taken Unknown] Aspirin [Aspirin 81mg (*)] 81 mg PO DAILY tab.chew 08/20/17 [Last Taken Unknown ] Furosemide [Lasix 40 MG (*)] 40 mg PO DAILY tab 08/20/17 [Last Taken Unknown] Hydrocodone/APAP 5/325 [Holden 5/325 (*)] 1 - 2 tab PO Q4HRS PRN tab 08/20/17 [ Last Taken Unknown] Metoprolol Tartrate [Lopressor 25 mg (*)] 12.5 mg PO BID tab 08/20/17 [Last Taken Unknown] Polyethylene Glycol 3350 [Miralax 17 gm (*)] 17 gm PO DAILY PRN pkt 08/20/17 [ Last Taken Unknown] Potassium Cl [Klor-Con 20 meq (*)] 20 meq PO DAILY tab 08/20/17 [Last Taken Unknown] Sennosides/Docusate Sodium [Senokot-S] 1 - 2 tab PO BID PRN tab 08/20/17 [Last Taken Unknown] Discharge Medications: Refer to the Discharge Home Medication list for PRN reason. PICC Care - Routine: N/A - Orders Services needed: Registered Nurse (cardiorespiratory and therapeutic drug monitoring), Physical Therapy (sternal precautions x 3 more weeks), Occupational Therapy (functional mobility) Isolation Type: None Oxygen: prn SpO2 < 90% Diet Recommendation: cardiac -low fat low salt, fluid restriction (use comment for amount) (2000 ml daily until off lasix) Diet Texture: Regular Texture Diet Weigh Patient: daily Parker: Not applicable Wound Care Instructions: daily soap and water. avoid underwater immersion until scabs off. avoid ointments until scabs off Activity/Weight Bearing Restrictions: Sternal precautions x 3 more weeks. Avoid push/pull activities. Avoid lifting > 10 lbs with an outstretched arm Additional: Call [place] (Sada) for weight gain > 2 lbs overnight, weight gain > 5 lbs in 5 days, resting HR > 120, SBP < 90 or > 150, supplemental O2 req > 3 lpm, or any wound concerns - Labs/Radiology BMP Date: 08/25/17 (results to Dr Tomlin's nurse) PT/INR Date: 08/22/17 (INR once weekly until stable in therapeutic range of 2-3) Imaging Orders: chest xray prior to surgical appointment Call or Fax Lab and Imaging Results to: Bianca Guillaume, Dr Tomlin's nurse for any lab results, abnormal vitals or med ?s - Follow Up Care Current Providers and Referrals: Tara Bingham [Primary Care Provider] - Clem Christie MD [Medical Doctor] - Benjamin Tomlin DO [Doctor of Osteopathy] - 08/26/17 10:00 am Shamar Ramos MD [Medical Doctor] - (follow up with cardiology in 5-7 days)
--- NOTE | 2017-08-20 07:53 | PDDCSUM ---
Discharge Summary Discharge Summary: DATE OF ADMISSION: 08/11/17 DATE OF DISCHARGE: 08/20/17 DISPOSITION: Transferred to [facility] PRINCIPAL DISCHARGE DIAGNOSES: 1. Nonobstructive carotid artery disease 2. Severe multivessel coronary artery disease treated with coronary artery bypass grafting x 4 3. Longstanding persistent atrial fibrillation treated with Cardoza Maze IV cryoablation and clip exclusion of the left atrial appendage 4. Acute expected blood loss anemia with mild coagulopathy 5. Postoperative junctional rhythm with pauses requiring placement of a permanent pacemaker 6. Postoperative left pleural effusion evacuated by thoracentesis 7. Acute on chronic renal insufficiency, resolved 8. Postoperative urinary retention, resolved FOLLOW UP APPOINTMENTS: 1. CV surgery: with Dr Tomlin at [facility] on 08/26 at 10:00 am . 2. Cardiology: with Dr Christie at [facility] within 4-6 weeks. Appointment to be established during surgical visit. 3. Pacemaker clinic: at [facility] within 1 week. Call for an appointment. FOLLOW UP TESTIN. INR on 08/22. Results to [facility]. 2. BMP on 08/25. Results to [facility]. 2. CXR prior to surgical appointment. ALLERGIES/SENSITIVITIES: NKDA DISCHARGE MEDICATIONS: see medical administration record for full details Coumadin and Lipitor as on admission with the following adjustments: Hold Lisinopril/HCTZ 20/12.5 mg two tabs daily Hold herbal supplement NEW prescriptions: 1. ASA 81 mg daily. Hold for INR > 3. 2. Lasix 40 mg daily 3. Klor-Con 20 meq daily with Lasix 4. Metoprolol tartrate 12.5 mg BID 5. [place] 5/325 one-half to 2 tabs q 4-6 hrs prn incisional discomfort CONSULTANTS: Pulmonology/critical care (Avinash), Cardiology (Richard) PROCEDURES/IMAGIN/26 Carotid ultrasound: mild to moderate plaquing of bilateral carotid bifurcations 08/11 (Patria): Coronary artery bypass grafting x 4 (CHAPIN-LAD, SV-D1, SV-PDA, SV- OM1). Takedown left internal mammary artery. Endoscopic vein harvest left leg. Cardoza Maze IV procedure utilizing cryothermy and AtriClip ligation of the left atrial appendage. 08/18 (Richard): Implantation of a dual chamber SJM Tendril STS permanent pacemaker. 08/19 (Patricia): US guided left thoracentesis, 850 ml HISTORY OF PRESENT ILLNESS: 77 yo male with a strong family hx of CAD and exertional chest pains concerning for angina admitted for elective cardiac catheterization. PERTINENT PAST MEDICAL HISTORY: Chronic right bundle branch block, long standing persistent atrial fibrillation , chronic anticoagulation, chronic kidney disease stage III, essential hypertension, dyslipidemia ABBREVIATED HOSPITAL COURSE BY ACTIVE PROBLEM LIST: 1. Sx severe CAD w preserved LV systolic fx - s/p CABG. Small caliber targets with early postCPB vasoplegia requiring prolonged low dose pressor support. Gradual improvement with no further instability after POD#2. Moderate sized left pleural effusion refractory to diuresis evacuated by thoracentesis. Secondary prevention with baby ASA, BB and statin. 2. Longstanding persistent AF/chronic anticoagulation w Coumadin - Early post Maze rhythm predominantly JR/slow AF, requiring pacing. Eventual PPM placement for development of pauses. AF prophylaxis with BB subsequently begun. Antithrombotic prophylaxis with Coumadin resumed. Prior INR parameters of 2-3 sufficient. 3. Acute on CKD3 - Baseline Cr 1.4. Bump to peak of 1.9 on POD#1 resolved with low dose pressor support/augmented renal perfusion pressures. 4. Acute expected blood loss anemia with mild coagulopathy - Stable. No transfusions. H/H > 04/13 maintained. 5. Postoperative urinary retention - Resolved without intervention.
[2017-08-20] MEDS: POTASSIUM CL 20 MEQ TAB PO SCH (08:16)
[2017-08-20] MEDS: FUROSEMIDE 40 MG TAB PO SCH (08:16)
[2017-08-20] MEDS: ASPIRIN 81 MG CHEWABLE TAB PO SCH (08:16)
[2017-08-20] MEDS: METOPROLOL TARTRATE 25 MG TAB PO SCH (08:17)
[2017-08-20] MEDS: ATORVASTATIN CALCIUM 40 MG TAB PO SCH (08:17)
[2017-08-20] MEDS: PANTOPRAZOLE SODIUM 40 MG TAB PO SCH (08:17)
[2017-08-20 08:42] LABS: INR 1.17 (0.83-1.16); PROTIME(PATIENT) 15.1 SEC (12.0-15.0)
--- NOTE | 2017-08-20 09:46 | PDCARPN ---
Cardiology Progress Note Chief Complaint: No cardiovascular complaints today, but moderate anxiety about the pending move to inpatient rehab Assessment/Plan: Assessment: 08-20-17 Overall, patient is doing well. POD#2 for PPM, POD#1 for thoracentesis, POD#9 for CABG with Cardoza Maze. Moderate anxiety about pending move to inpatient rehab. Patient feels that breathing might be better (post thoracentesis), but weakness and dizziness continue to be noted. Minimal pain to the pacer site. Sternal wound is well healed and stable. 3 Patient is now POD#1 for PPM implant given junctional/asystole post CABG (POD#8 ) with Cardoza Maze and AtriClip ligation of the TAMIR. Patient doing well today. No cardiovascular complaints of chest pains or pressure. Patient sitting up in chair. Implant site was clean and dry. No haematoma noted. Pacer interrogation with normal device function noted. Chest x-ray without pneumothorax this morning (or yesterday). 08-18-17 Patient is a 77 y/o male, POD #7 for CABG 4V (CHAPIN-LAD, SV-D1, SV-OM1, SV-PDA), EVH LLE, CoxMaze 4 with cryothermy and AtriClip ligation TAIMR, atrial fibrillation (on coumadin s/p Cardoza-Maze IV with [id number] score of 4), chronic kidney disease, HTN, and HLP, with ongoing complete heart block, in need of PPM implantation. Heparin therapy has been held, and the coumadin (INR) in noted to be subtherapeutic at present. Patient doing well today. No cardiovascular complaints of chest pains or pressure. No PND or orthopnea. Patient has been up in chair for the day. Plan: (1) ASA for life with CAD/CABG (2) Statins for HLP (3) Coumadin for history of atrial fibrillation (4) Aggressive OT/PT is needed (5) Outpatient follow up with cardiology in 5-7 days Subjective: No cardiovascular complaints Reviewed/Discussed With: multidisciplinary team Objective: Vital Signs (8 Hrs) Temp Pulse Resp BP Pulse Ox 08/20/17 08:30 96 08/20/17 07:18 36.6 C 63 16 111/63 97 08/20/17 03:35 37.0 C 64 19 110/69 99 Intake/Output (24 Hrs) 08/19/17 08/20/17 08/21/17 05:59 05:59 05:59 Intake Total 600 750 Output Total 1775 850 Balance -1175 -100 Intake: Oral (ml) 200 750 IV Intake (ml) 400 Output: Urine (ml) 1775 850 Toilet 425 450 Urinal 1350 400 Other: Weight 96 kg 94.8 kg 93.4 kg Number of Voids Toilet 1 Urinal 1 1 Result Diagrams: 08/19/17 03:18 08/19/17 03:18 Telemetry: atrial pacing - Physical Exam Constitutional: WDWN, healthy appearing, no apparent distress Eyes: PERRL, EOMI Ears, Nose, Mouth, Throat: moist mucous membranes Cardiovascular: regular rate and rhythm, pulses symmetric bilat, other (there is a soft rub noted), No jugular vein distention Peripheral Pulses: 2+: dorsalis-pedis (R), dorsalis-pedis (L) Respiratory: reduced air movement, inspiratory crackles Gastrointestinal: normoactive bowel sounds Skin: no rashes Musculoskeletal: no muscular tenderness Neurologic: AAOx3, CN II-XII grossly intact Psychiatric: cooperative, interactive, following commands, anxious ICD10 Worksheet Patient Problems: Problems Problem Status Onset Acute blood loss anemia Acute CAD, multiple vessel Acute CKD (chronic kidney disease), stage III Acute Chronic anticoagulation Acute Chronic atrial fibrillation Acute S/P CABG x 4 Acute ~08/11/17 S/P ablation of atrial fibrillation Acute ~08/11/17
[2017-08-20 11:39] VITALS: BP 105/59; PULSE 65; RESP 12; TEMP 98.8; O2SAT 97
== END 2017-08-20 12:20 | DRG 229 ==
LOC: F3N 05:56 → F2N 10:59 → F2W 08-18 15:27
PROVIDERS: ADMIT Surgery; ATTEND Thoracic Surgery (Cardiothoracic Vascular Surgery)
DX: I25.10 Atherosclerotic heart disease of native coronary artery without angina pectoris (principal); I48.1 Persistent atrial fibrillation; I44.2 Atrioventricular block, complete; D62 Acute posthemorrhagic anemia; N17.9 Acute kidney failure, unspecified; J90 Pleural effusion, not elsewhere classified; I12.9 Hypertensive chronic kidney disease with stage 1 through stage 4 chronic kidney disease, or unspecified chronic kidney disease; N18.3 Chronic kidney disease, stage 3 (moderate); R73.9 Hyperglycemia, unspecified; I95.1 Orthostatic hypotension; R33.9 Retention of urine, unspecified; Z79.01 Long term (current) use of anticoagulants
CPT/HCPCS: 82947-QW; 97110-GP; 97116-GP; 97161-GP; 97166-GO; 97530-GO; 97530-GP; 97535-GO; C1785; C1898; G8978-GP-CM; G8979-GP-CJ; G8980-GP-CJ; G8987-GO-CM; G8988-GO-CI; J0153; J0171; J0282; J0330; J0690; J1265; J1644; J1815; J1940; J2001; J2150; J2250; J2260; J2270; J2370; J2405; J2440; J2704; J2720; J2765; J2930; J3010; J3370; J3475; J7060; P9041; Q9967

== ENCOUNTER → 2017-08-26 | Outpatient (CLI) | payer OTHER | LOC: FIMAGING 11:22 → EDSTATUS 11:23 | PROVIDERS: ATTEND Thoracic Surgery (Cardiothoracic Vascular Surgery) | DX: J98.11 Atelectasis (principal); Z95.1 Presence of aortocoronary bypass graft ==

== ENCOUNTER 2017-12-27 08:42 | Emergency (ER) | payer OTHER ==
--- NOTE | 2017-12-27 09:24 | EDPHY ---
General Time Seen by Provider: 12/27/17 09:13 Narrative: CHIEF COMPLAINT: Bloody urine HISTORY OF PRESENT ILLNESS: Patient presents with complaints of bloody urine. This started yesterday afternoon. It was easily visible to him. It is completely pain-free. No abdominal, flank or penile pain. No fever. No trauma or injury. He does take Coumadin status post coronary artery bypass grafting. He has no fever. No feelings of illness. No blood from any other site or will brushing his teeth. No previous incidence of this. He did have kidney stones 20 years ago but this is completely different presentation from. No other associated complaints or modifying factors. REVIEW OF SYSTEMS: Ten systems reviewed and are negative unless otherwise noted in the HPI PCP: Dr. Meng Jacob SPECIALISTS: Dr. Sada Elias PAST MEDICAL HISTORY: Coronary artery disease status post bypass, dyslipidemia, hypertension PAST SURGICAL HISTORY: CABG 2018 SOCIAL HISTORY: Never smoker. Occasional alcohol. Retired. Lives independently FAMILY HISTORY: Noncontributory EXAMINATION General Appearance: Alert, no distress Head: normocephalic, atraumatic Eyes: Pupils equal and round, no conjunctival pallor or injection ENT, Mouth: Mucous membranes moist Neck: Normal inspection, supple, non-tender Respiratory: Lungs are clear to auscultation Cardiovascular: Regular rate and rhythm Gastrointestinal: Abdomen is soft and nontender. No tympany rigidity. No guarding. No palpable mass. Back: non-tender, no bony abnormalities Neurological: A&O, nonfocal, normal gait Skin: Warm and dry, no rash. No petechiae. No purpura. Extremities: Nontender, no pedal edema. Psychiatric: Mood and affect normal DIFFERENTIAL DIAGNOSES: Including but not limited to Coumadin coagulopathy, cystitis, interstitial cystitis, renal mass, renal cyst, renal colic, ureterolithiasis, MDM: 9:15 a.m. Gross hematuria over the past 18 hr that is painless. He has no urinary complaints otherwise. No flank pain. No fever and his abdominal exam is benign. I have ordered laboratory studies to check his coagulopathy as well as urinalysis. I discussed with Dr. Mckinnon for possible imaging. 10:00 a.m. Patient's creatinine is slightly elevated 1.5, but his BUN to creatinine ratio suggested pre renal azotemia that we can hydrate. I discussed this with CT technicians and they agree that we may proceed with scan but will need to hydrate the patient. 11:30 a.m. Notified by radiologist that the CT scan was not completely diagnostic to rule out mass, there is a stone in the left renal pelvis the could explain hematuria. Remainder of findings discussed as documented. 11:50 a.m. Patient re-evaluated. We discussed the CT scan findings. We discussed his INR being 2.9, which is within range. We discussed going home with increase fluid intake due to the mildly elevated creatinine in the presence of the stone. I do not appreciate any infection of the urine. He is feeling well at this time with pain or fever. No nausea or vomiting. We discussed strict ED precautions for any difficulty urinating, flank pain, fever, nausea vomiting. We discussed the possibility of clot formation in the bladder due to the hematuria, and this may necessitate return to emergency department for Parker catheter placement irrigation. He voices understanding of this and agrees with discharge home. He is discharged in stable conditions with Urology information for him to follow up with. SUPERVISION: Patient was independently examined, but I discussed the case with my secondary supervising physician Dr. Mckinnon - Diagnostics Imaging Results: Imaging Impressions Abdomen/Pelvis CT 12/27/17 09:28 Impression: 1. Poor quality CT urogram. 2. 2 mm calculus in the left renal hilum without obstructive uropathy. 3. Minimal right pleural effusion. Minimal perihepatic ascites. 4. Cardiac enlargement. Pacemaker. 5. Atherosclerosis. Results called to Tj Waddell PA-C, at 11:30 a.m. - History Smoking Status: Never smoked - Objective Vital Signs: Initial Vital Signs Temperature (C) 97.5 F 12/27/17 08:48 Heart Rate 67 12/27/17 08:48 Respiratory Rate 18 12/27/17 08:48 Blood Pressure 148/96 H 12/27/17 08:48 O2 Sat (%) 92 12/27/17 08:48 O2 Delivery Mode Room Air Allergies/Adverse Reactions: No Known Allergies Allergy (Verified 12/27/17 08:43) Home Medications: Medication Instructions Recorded Atorvastatin Calcium [Lipitor 40 40 mg PO DAILY 08/01/17 mg (*)] Warfarin Sodium [Coumadin 5MG (*)] 5 mg PO DAILY 08/01/17 Furosemide [Lasix 40 MG (*)] 40 mg PO DAILY tab 08/20/17 Hydrocodone/APAP 5/325 [[place] 1 - 2 tab PO Q4HRS PRN tab 08/20/17 5/325 (*)] Metoprolol Tartrate [Lopressor 25 12.5 mg PO BID tab 08/20/17 mg (*)] Polyethylene Glycol 3350 [Miralax 17 gm PO DAILY PRN pkt 08/20/17 17 gm (*)] Potassium Cl [Klor-Con 20 meq (*)] 20 meq PO DAILY tab 08/20/17 Sennosides/Docusate Sodium 1 - 2 tab PO BID PRN tab 08/20/17 [Senokot-S] Laboratory Results: Laboratory Results 12/27/17 09:34 12/27/17 09:34 12/27/17 12/27/17 12/27/17 09:34 09:34 09:34 WBC 5.57 10^3/uL 10^3/uL (3.80-9.50) RBC 3.91 10^6/uL L 10^6/uL (4.40-6.38) Hgb 12.4 g/dL L g/dL (13.7-17.5) Hct 37.4 % L % (40.0-51.0) MCV 95.7 fL fL (81.5-99.8) MCH 31.7 pg pg (27.9-34.1) MCHC 33.2 g/dL g/dL (32.4-36.7) RDW 15.8 % H % (11.5-15.2) Plt Count 144 10^3/uL L 10^3/uL (150-400) MPV 11.2 fL fL (8.7-11.7) Neut % (Auto) 50.2 % % (39.3-74.2) Lymph % (Auto) 30.2 % % (15.0-45.0) Trigg % (Auto) 14.5 % H % (4.5-13.0) Eos % (Auto) 3.6 % % (0.6-7.6) Baso % (Auto) 1.3 % % (0.3-1.7) Nucleat RBC Rel Count 0.0 % % (0.0-0.2) Absolute Neuts (auto) 2.80 10^3/uL 10^3/uL (1.70-6.50) Absolute Lymphs (auto) 1.68 10^3/uL 10^3/uL (1.00-3.00) Absolute Monos (auto) 0.81 10^3/uL H 10^3/uL (0.30-0.80) Absolute Eos (auto) 0.20 10^3/uL 10^3/uL (0.03-0.40) Absolute Basos (auto) 0.07 10^3/uL 10^3/uL (0.02-0.10) Absolute Nucleated RBC 0.00 10^3/uL 10^3/uL (0-0.01) Immature Gran % 0.2 % % (0.0-1.1) Immature Gran # 0.01 10^3/uL 10^3/uL (0.00-0.10) PT 30.2 SEC H SEC (12.0-15.0) INR 2.90 H (0.83-1.16) APTT 43.2 SEC H SEC (23.0-38.0) Sodium 140 mEq/L mEq/L (135-145) Potassium 3.9 mEq/L mEq/L (3.3-5.0) Chloride 107 mEq/L mEq/L (97-110) Carbon Dioxide 25 mEq/l mEq/l (22-31) Anion Gap 8 mEq/L mEq/L (8-16) BUN 32 mg/dL H mg/dL (7-23) Creatinine 1.5 mg/dL H mg/dL (0.7-1.3) Estimated GFR 45 Glucose 99 mg/dL mg/dL (70-100) Calcium 9.0 mg/dL mg/dL (8.5-10.4) Urine Color Urine Appearance Urine pH Ur Specific [place] Urine Protein Urine Ketones Urine Blood Urine Nitrate Urine Bilirubin Urine Urobilinogen Ur Leukocyte Esterase Urine RBC Urine WBC Ur Epithelial Cells Urine Bacteria Hyaline Casts Urine Mucus Urine Glucose 12/27/17 09:10 WBC RBC Hgb Hct MCV MCH MCHC RDW Plt Count MPV Neut % (Auto) Lymph % (Auto) Trigg % (Auto) Eos % (Auto) Baso % (Auto) Nucleat RBC Rel Count Absolute Neuts (auto) Absolute Lymphs (auto) Absolute Monos (auto) Absolute Eos (auto) Absolute Basos (auto) Absolute Nucleated RBC Immature Gran % Immature Gran # PT INR APTT Sodium Potassium Chloride Carbon Dioxide Anion Gap BUN Creatinine Estimated GFR Glucose Calcium Urine Color TNP Urine Appearance TNP Urine pH TNP Ur Specific [place] TNP Urine Protein TNP Urine Ketones TNP Urine Blood TNP Urine Nitrate TNP Urine Bilirubin TNP Urine Urobilinogen TNP Ur Leukocyte Esterase TNP Urine RBC 50-182 /hpf H /hpf (0-3) Urine WBC 1-3 /hpf /hpf (0-3) Ur Epithelial Cells NONE SEEN /lpf /lpf (NONE-1+) Urine Bacteria TRACE /hpf H /hpf (NONE SEEN) Hyaline Casts 25-50 /lpf H /lpf (0-1) Urine Mucus TRACE /lpf /lpf (NONE-1+) Urine Glucose TNP Medications Given: Discontinued Medications Sodium Chloride (Ns) 1,000 mls @ 0 mls/hr IV EDNOW ONE; Wide Open PRN Reason: Protocol Stop: 12/27/17 09:58 Last Admin: 12/27/17 10:14 Dose: 1,000 mls Sodium Chloride (Ns) 1,000 mls @ 0 mls/hr IV EDNOW ONE; Wide Open PRN Reason: Protocol Stop: 12/27/17 11:43 Last Admin: 12/27/17 11:53 Dose: 1,000 mls Departure - Departure Disposition: Home, Routine, Self-Care Clinical Impression: Nephrolithiasis, Gross hematuria, Warfarin-induced coagulopathy, Elevated serum creatinine Condition: Good Instructions: Kidney Stones (ED), Hematuria (ED) Additional Instructions: 1. Increase fluid intake for the next 48 hr 2. Contact primary care physician on Friday to be evaluated for your elevated serum creatinine and to discuss your Coumadin dosing 3. Contact Urology on Friday for definitive care of the left kidney stone 4. Return here for fever, abdominal pain, difficulty urinating, increasing blood in the urine, chest pain, shortness of breath, dizziness Referrals: Meng Jacob MD [Primary Care Provider] - As per Instructions Chano Thrasher MD [Medical Doctor] - As per Instructions
[2017-12-27 09:49] LABS: INR 2.9 (0.83-1.16); PROTIME(PATIENT) 30.2 SEC (12.0-15.0)
[2017-12-27 09:51] LABS: PLATELET COUNT 144 10^3/uL (150-400)
[2017-12-27] MEDS ORDERED: NS 1,000 ML IV ONE ×2 (09:57→11:42)
[2017-12-27] MEDS ORDERED: IOPAMIDOL (ISOVUE-300) 150 ML BTL ONE (09:59)
[2017-12-27 12:28] VITALS: BP 136/77
== END 2017-12-27 12:44 | disposition home or self-care (01) ==
DX: N20.0 Calculus of kidney (principal); R31.0 Gross hematuria; R79.89 Other specified abnormal findings of blood chemistry; D68.9 Coagulation defect, unspecified; I10 Essential (primary) hypertension; I25.810 Atherosclerosis of coronary artery bypass graft(s) without angina pectoris; Z79.01 Long term (current) use of anticoagulants
CPT/HCPCS: 74178; 96360; 96361; 99285; Q9967